=== PATIENT | male | born 1960 | race Caucasian/White ===

== ENCOUNTER 2023-03-19 12:56 | Outpatient (AMB) | payer BC, SELFPAY ==
--- NOTE | 2023-03-19 12:59 | MHC.PC.OV ---
Vital Signs 03/19/23 13:00 Height 5 ft 7 in Weight 205 lb BMI 32.1 BP 140/80 H Blood Pressure Location Lt brachial Position Sitting Pulse 70 Pulse Source Pulse Oximeter Pulse Oximetry (%) 97 Oxygen Delivery Method Room Air Intake Visit Reasons: Annual Physical Intake Note: Patient is here today for a physical. 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: Not Required per policy Accompanied by: Self / Same As Patient Allergies levofloxacin [From LEVAQUIN] Allergy (Severe, Verified 03/19/23 13:00) hypotension, admt for allergic rxn diverticulitis 12/24/18 Levaquin Allergy (Unknown, Uncoded 03/19/23 13:00) hives, syncope Tobacco use date assessed: 03/19/23 Fall risk assessment: No Falls in past year Last assessed Fall Risk: 03/19/23 Dental Screening Dental Screen Date: 03/19/23 Did you have a dental visit in the last 12 months?: No Did you have a dental problem in the last 6 months where you did not have access to dental care?: No Was dental information given to patient?: Patient has dentist HPI Annual Physical HPI Details healthy [facility] Surgical History (Updated 03/19/23 @ 13:03 by CONY Melgoza) No pertinent past surgical history Social History (Updated 03/19/23 @ 13:03 by CONY Melgoza) Housing: House Alcohol intake: current Alcohol intake frequency: holidays/special occasions only Patient Tobacco Use Status: Never used Tobacco e-Cigarette/Vaping Use: Never Used Second Hand Smoke Exposure: No service: No Current occupational status: employed Current occupational exposures/hazards: No Cognitive needs: No Hearing needs: No Vision needs: Yes Questionnaire Thrive Questionnaire Date Thrive assessed: 01/03/23 JOVI-7 AMB Questionnaire JOVI-7 Date JOVI - 7 assessed: 01/03/23 Source: Developed by Drs. Ke Terry, Joanne Peterson, Yusef Diaz and colleagues, with an educational ganesh from [employer]. Review of Systems Const Denies chills, Denies fatigue, Denies headache(s) and Denies weight loss Eyes Denies change in vision, Denies diplopia and Denies eye pain ENT Denies vertigo, Denies dizziness, Denies headache(s) and Denies nasal discharge Card Denies chest pain, Denies rapid heart rate and Denies dyspnea on exertion Resp Denies chest congestion, Denies cough, Denies pain with cough and Denies dyspnea on exertion GI Denies abdominal pain, Denies hematochezia and Denies change in bowel habits Musc Denies myalgias, Denies arthralgias and Denies joint swelling Skin/Breast Denies lesions and Denies unusual bruising Neuro Denies vertigo, Denies dizziness, Denies headache(s) and Denies focal weakness Endo Denies fatigue Physical exam (Primary Care) Vital Signs: Last Vital Signs Pulse 70 03/19/23 13:00 BP 140/80 H 03/19/23 13:00 Pulse Ox 97 03/19/23 13:00 Oxygen Delivery Method Room Air 03/19/23 13:00 BMI result Body Mass Index 32.1 Tobacco/Smoking Status: Tobacco use Status Tobacco use date assessed 03/19/23 03/19/23 13:05 Patient Tobacco Use Status Never used Tobacco 03/19/23 13:05 e-Cigarette/Vaping Use Never Used 03/19/23 13:05 Thrive Assessment: Date of Thrive Assessment Date Thrive assessed 01/03/23 03/19/23 13:05 Const General: cooperative, healthy appearing and no acute distress Orientation/consciousness: oriented to person, oriented to place and oriented to time [facility] Head: Yes normal to inspection, Yes normocephalic and Yes atraumatic Mouth: Normal oral and palatal mucosa present and tongue normal Throat: Yes posterior oropharynx normal and Yes uvula midline Eyes General: appearance normal, both eyes and all related structures Neck Neck: Yes normal visual inspection, Yes full ROM and Yes no lymphadenopathy Thyroid: Thyroid normal Carotids: normal carotid upstroke Chest Chest palpation & inspection: normal inspection of the chest Resp Effort & Inspection: normal respiratory effort and able to speak in complete sentences Auscultation: clear to auscultation bilaterally Cardio Jugular venous distension: no JVD Palpation: normal PMI Rate: regular rate Rhythm: regular rhythm Heart sounds: S1 normal heart sound present and S2 normal heart sound present GI Inspection: Yes normal to inspection Palpation (GI): Soft to palpation and No hepatosplenomegaly present Auscultation: normal bowel sounds General: Yes no CVA tenderness Back/Spine/Pelvis Back: no CVA tenderness Skin General skin exam: no rashes or lesions noted Neuro General: oriented to person, oriented to place and oriented to time Extrem General: Yes normal to inspection and Yes full ROM Assessment and Plan Assessment & Plan (1) Physical exam: Code(s): Z00.00 - Encounter for general adult medical examination without abnormal findings Plan: healthy; do labs Orders: Orders Comprehensive [place]. Panel Fast Today N28.9 - Disorder of kidney and ureter, unspecified Hemoglobin A1c Today R73.9 - Hyperglycemia, unspecified Lipid Panel Today E78.5 - Hyperlipidemia, unspecified Thyroid Stimulating Hormone Today E03.9 - Hypothyroidism, unspecified Complete Blood Count Auto Diff Today D64.9 - Anemia, unspecified Coding Level of Care Code Est Pt Prev Care 40-64y(69547) Diagnoses Physical exam Z00.00
[2023-03-19 13:00] VITALS: BP 140/80; PULSE 70; O2SAT 97; BMI 32.1
== END 2023-03-19 13:19 | disposition home or self-care (01) ==
PROVIDERS: Visit Provider Internal Medicine
DX: Z00.00 Encounter for general adult medical examination without abnormal findings (principal)
CPT/HCPCS: 99396

== ENCOUNTER 2023-11-21 10:43 | Outpatient (AMB) | payer BC, SELFPAY ==
[2023-11-21 11:17] VITALS: BP 180/100; PULSE 97; TEMP 36.6; O2SAT 96; BMI 32.6
--- NOTE | 2023-11-21 11:17 | AM.OFFWIN_ITS ---
Intake Vital Signs 11/21/23 11:17 Height 5 ft 7 in Weight 208 lb BMI 32.6 BP 180/100 H Blood Pressure Location Lt brachial Position Sitting Pulse 97 Pulse Source Pulse Oximeter Temp 97.9 F Temp Source Temporal Artery Scan Pulse Oximetry (%) 96 Oxygen Delivery Method Room Air Intake Visit Reasons: EP chest congestion Intake Note: pt is here today for chest congestion started 2 days ago Patient Tobacco Use Status: Never used Tobacco Allergies levofloxacin [From LEVAQUIN] Allergy (Severe, Verified 11/21/23 11:18) hypotension, admt for allergic rxn diverticulitis 12/24/18 Levaquin Allergy (Unknown, Uncoded 03/19/23 13:00) hives, syncope Do you need a note to return to daycare/school/sports/work: Yes HPI HPI Comments History of Present Illness Details 63 y/o female patient who presents to [facility] in clinic with c/o chest congestion x 2 days. Reports hearing audible wheezing when resting of lying down. Denies SOB or Chest Pain. Denies fevers, chills, nausea or vomiting. He is an active compa, goes to Gym daily. Does weight lifting. He just got back from [employer] COUNTS INCLUDE 234 BEDS AT THE [facility] Surgical History (Updated 03/19/23 @ 13:03 by CONY Melgoza) No pertinent past surgical history Social History (Updated 03/19/23 @ 13:03 by CONY Melgoza) Housing: House Alcohol intake: current Alcohol intake frequency: holidays/special occasions only Patient Tobacco Use Status: Never used Tobacco e-Cigarette/Vaping Use: Never Used Second Hand Smoke Exposure: No service: No Current occupational status: employed Current occupational exposures/hazards: No Cognitive needs: No Hearing needs: No Vision needs: Yes Review of Systems Const All systems reviewed & are unremarkable except as noted in HPI and below Physical Exam Vital Signs: Last Vital Signs Temp 97.9 F 11/21/23 11:17 Pulse 97 11/21/23 11:17 BP 180/100 H 11/21/23 11:17 Pulse Ox 96 11/21/23 11:17 Oxygen Delivery Method Room Air 11/21/23 11:17 BMI result Body Mass Index 32.6 Const General: comfortable and no acute distress Orientation/consciousness: patient oriented x3 HEENT Head: Yes normocephalic Ears: external ears normal and TM's normal bilaterally General nose exam: No nasal discharge present and Abnormal mucous membranes and turbinates present boggy and erythematous Face and sinus: Yes sinuses nontender Mouth: moist mucous membranes Throat: Yes posterior oropharynx normal Resp Effort & Inspection: normal respiratory effort, able to speak in complete sentences, no audible wheezes and no cough Auscultation: clear to auscultation bilaterally, no crackles, no rales, no rhonchi and no wheezes Cardio Rate: regular rate Rhythm: regular rhythm Neuro General: patient oriented x3 and gait normal Psych Speech and movement: Clear speech present Assessment & Plan Assessment & Plan (1) Cough in adult: Code(s): R05.9 - Cough, unspecified Plan: - OTC remedies - Rest - Exam WNL, no wheezing. Orders: Orders SARS-CoV2/FLU/RSV Today R05.9 - Cough, unspecified Coding Level of Care Code Est Pt Level 3 (64865) Diagnoses Cough in adult R05.9 Time Spent (min) 15
== END 2023-11-21 12:22 | disposition home or self-care (01) ==
PROVIDERS: PCP Internal Medicine; Visit Provider Nurse Practitioner Family
DX: R05.9 Cough, unspecified (principal)
CPT/HCPCS: 99213

== ENCOUNTER 2023-11-21 11:46 | Outpatient (REF) | payer BC, SELFPAY ==
[2023-11-21 15:38] LABS: Influenza A PCR NEGATIVE (Negative); Influenza B PCR NEGATIVE (Negative); Resp Syncy Virus RNA Qual PCR NEGATIVE (Negative); SARS COV2 PCR INHOUSE NEGATIVE (Negative)
== END 2023-11-21 11:47 | disposition home or self-care (01) ==
LOC: HO.LAB 11:46
PROVIDERS: Visit Provider Nurse Practitioner Family
DX: R05.9 Cough, unspecified (principal)
CPT/HCPCS: 0241U

== ENCOUNTER 2024-03-20 09:00 | Outpatient (AMB) | payer BC, SELFPAY ==
--- NOTE | 2024-03-20 09:03 | MHC.PC.OV ---
Vital Signs 03/20/24 09:05 Height 5 ft 7 in Weight 204 lb 4 oz BMI 32.0 BP 140/80 H Blood Pressure Location Lt brachial Position Sitting Pulse 92 Pulse Source Pulse Oximeter Pulse Oximetry (%) 96 Oxygen Delivery Method Room Air Intake Visit Reasons: Annual Exam - due for colonoscopy Intake Note: Patient is here today for a physical. 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: Not Required per policy Accompanied by: Self / Same As Patient Allergies levofloxacin [From LEVAQUIN] Allergy (Severe, Verified 03/20/24 09:05) hypotension, admt for allergic rxn diverticulitis 12/24/18 Levaquin Allergy (Unknown, Uncoded 03/20/24 09:05) hives, syncope Medication List - Last Reconciled 03/20/24 by Tino Ruiz MD No Known Home Meds Tobacco use date assessed: 03/20/24 Fall risk assessment: No Falls in past year Last assessed Fall Risk: 03/20/24 Dental Screening Dental Screen Date: 03/20/24 Did you have a dental visit in the last 12 months?: No Did you have a dental problem in the last 6 months where you did not have access to dental care?: No Was dental information given to patient?: Patient has dentist HPI Annual Exam - due for colonoscopy HPI Details healthy; has a colonoscopy pending [facility] Surgical History No pertinent past surgical history Social History Housing: House Alcohol intake: current Alcohol intake frequency: holidays/special occasions only Patient Tobacco Use Status: Never used Tobacco e-Cigarette/Vaping Use: Never Used Second Hand Smoke Exposure: No service: No Current occupational status: employed Current occupational exposures/hazards: No Cognitive needs: No Hearing needs: No Vision needs: Yes Questionnaire PHQ-9 Over the last 2 weeks, how often have you been bothered by any of the following problems? 1. Little interest or pleasure in doing things: not at all 2. Feeling down, depressed, or hopeless: not at all 3. Trouble falling or staying asleep, or sleeping too much: not at all 4. Feeling tired or having little energy: not at all 5. Poor appetite or overeating: not at all 6. Feeling bad about yourself - or that you are a failure or have let yourself or your family down: not at all 7. Trouble concentrating on things, such as reading the newspaper or watching television: not at all 8. Moving or speaking so slowly that other people could have noticed. Or the opposite - being so fidgety or restless that you have been moving around a lot more than usual: not at all 9. Thoughts that you would be better off or of hurting yourself in some way: not at all Total score: 0 Depression Screening Interpretation: Negative Depression Screening Done: Yes Source: Developed by Drs. Ke Terry, Joanne Peterson, Yusef Diaz and colleagues, with an educational ganesh from [employer]. Thrive Questionnaire Date Thrive assessed: 03/20/24 I am a: Patient What is your living situation today?: I have a steady place to live Within the past 12 months, did the food you bought not last and you didn't have the money to get more?: Never true Within the past 12 months, did you worry whether your food would run out before you got money to buy more?: Never true Do you have trouble paying for medicines?: No Do you have trouble getting transportation to medical appointments?: No Do you have trouble paying your heating and electricity bill?: No Do you have trouble taking care of your child, family member or friend?: No Do you have trouble with day-to-day activities such as bathing, preparing meals, shopping, managing finances, etc.?: No Are you currently unemployed and looking for a job?: No Are you interested in more education?: No Currently or been in a relationship where the following occur: No concerns reported THRIVE Score: 0 AUDIT C Alcohol Use Questionnaire (AUDIT-C) 1. How often do you have a drink containing alcohol?: 2-4 times a month 2. How many drinks containing alcohol do you have on a typical day when you are drinking?: 1 or 2 Total Score: 2 JOVI-7 AMB Questionnaire JOVI-7 Date JOVI - 7 assessed: 03/20/24 Feeling nervous, anxious, or on edge: 0 = Not at all Not being able to stop or control worryin = Not at all Worrying too much about different things: 0 = Not at all Trouble relaxin = Not at all Being so restless that it is hard to sit still: 0 = Not at all Becoming easily annoyed or irritable: 0 = Not at all Feeling afraid as if something awful might happen: 0 = Not at all Total JOVI-7 score (0-4 normal; 5-9 mild; 10-14 moderate; 15-21 severe): 0 Source: Developed by Drs. Ke Terry, Joanne Peterson, Yusef Diaz and colleagues, with an educational ganesh from [employer]. Review of Systems Const Denies chills, Denies fatigue, Denies headache(s) and Denies weight loss Eyes Denies change in vision, Denies diplopia and Denies eye pain ENT Denies vertigo, Denies dizziness, Denies headache(s) and Denies nasal discharge Card Denies chest pain, Denies rapid heart rate and Denies dyspnea on exertion Resp Denies chest congestion, Denies cough, Denies pain with cough and Denies dyspnea on exertion GI Denies abdominal pain, Denies hematochezia and Denies change in bowel habits Musc Denies myalgias, Denies arthralgias and Denies joint swelling Skin/Breast Denies lesions and Denies unusual bruising Neuro Denies vertigo, Denies dizziness, Denies headache(s) and Denies focal weakness Endo Denies fatigue Physical exam (Primary Care) Vital Signs: Last Vital Signs Pulse 92 03/20/24 09:05 BP 140/80 H 03/20/24 09:05 Pulse Ox 96 03/20/24 09:05 Oxygen Delivery Method Room Air 03/20/24 09:05 BMI result Body Mass Index 32.0 Tobacco/Smoking Status: Tobacco use Status Tobacco use date assessed 03/20/24 03/20/24 09:08 Patient Tobacco Use Status Never used Tobacco 03/20/24 09:08 e-Cigarette/Vaping Use Never Used 03/20/24 09:08 PHQ-9: PHQ-9 Score PHQ-9: Total score 0 03/20/24 09:08 Depression Screening Interpretation: Negative Thrive Assessment: Date of Thrive Assessment Date Thrive assessed 03/20/24 03/20/24 09:08 Currently or been in a relationship where the following occur: No concerns reported Const General: cooperative, healthy appearing and no acute distress Orientation/consciousness: oriented to person, oriented to place and oriented to time HEN[facility] Head: Yes normal to inspection, Yes normocephalic and Yes atraumatic Mouth: Normal oral and palatal mucosa present and tongue normal Throat: Yes posterior oropharynx normal and Yes uvula midline Eyes General: appearance normal, both eyes and all related structures Neck Neck: Yes normal visual inspection, Yes full ROM and Yes no lymphadenopathy Thyroid: Thyroid normal Carotids: normal carotid upstroke Chest Chest palpation & inspection: normal inspection of the chest Resp Effort & Inspection: normal respiratory effort and able to speak in complete sentences Auscultation: clear to auscultation bilaterally Cardio Jugular venous distension: no JVD Palpation: normal PMI Rate: regular rate Rhythm: regular rhythm Heart sounds: S1 normal heart sound present and S2 normal heart sound present GI Inspection: Yes normal to inspection Palpation (GI): Soft to palpation and No hepatosplenomegaly present Auscultation: normal bowel sounds General: Yes no CVA tenderness Back/Spine/Pelvis Back: no CVA tenderness Skin General skin exam: no rashes or lesions noted Neuro General: oriented to person, oriented to place and oriented to time Extrem General: Yes normal to inspection and Yes full ROM Assessment and Plan Assessment & Plan (1) Physical exam: Code(s): Z00.00 - Encounter for general adult medical examination without abnormal findings Plan: do labs Orders: Orders Complete Blood Count Auto Diff Today Z13.0 - Encounter for screening for diseases of the blood and blood-forming organs and certain disorders involving the immune mechanism Comprehensive [place]. Panel Fast Today Z13.9 - Encounter for screening, unspecified Lipid Panel Today Z13.220 - Encounter for screening for lipoid disorders Thyroid Stimulating Hormone Today Z13.29 - Encounter for screening for other suspected endocrine disorder Referrals Ear/Nose/Throat Referral H61.20 - Impacted cerumen, unspecified ear Coding Level of Care Code Est Pt Prev Care >65y(24414) Diagnoses Physical exam Z00.00
[2024-03-20 09:05] VITALS: BP 140/80; PULSE 92; O2SAT 96; BMI 32.0
== END 2024-03-20 09:22 | disposition home or self-care (01) ==
PROVIDERS: PCP Internal Medicine; Visit Provider Internal Medicine
DX: Z00.00 Encounter for general adult medical examination without abnormal findings (principal)
CPT/HCPCS: 99397

== ENCOUNTER 2024-04-17 11:30 | Outpatient (AMB) | payer BC, SELFPAY ==
[2024-04-17 12:00] VITALS: BP 144/78; PULSE 65; TEMP 36.8; O2SAT 98; BMI 32.1
--- NOTE | 2024-04-17 12:00 | MHC.OFFWIV ---
Intake Vital Signs 04/17/24 12:00 Height 5 ft 7 in Weight 205 lb BMI 32.1 BP 144/78 H Blood Pressure Location Rt brachial Position Sitting Pulse 65 Pulse Source Pulse Oximeter Temp 98.2 F Temp Source Oral Pulse Oximetry (%) 98 Oxygen Delivery Method Room Air Intake Visit Reasons: EP Bee sting LT leg/cellulitis Intake Note: pt c/o bee sting on LT leg/ cellulitis. Started Sunday while golfing Patient Tobacco Use Status: Never used Tobacco Allergies levofloxacin [From LEVAQUIN] Allergy (Severe, Verified 04/17/24 12:05) hypotension, admt for allergic rxn diverticulitis 12/24/18 Levaquin Allergy (Unknown, Uncoded 04/17/24 12:05) hives, syncope Do you need a note to return to daycare/school/sports/work: No HPI HPI Comments History of Present Illness Details Patient is a 63-year-old male who states he was stung by a bee while golfing proximally 48 hours ago. He says he is worried he has a cellulitis because he has had it before on that same leg. He denies much pain on the area, he does not think it feels much warmer than the rest of his leg it does not seem as red as it did earlier today. He says the wound/bite is not draining anything. He has been using a paced of water and baking soda on the area as well as hydrogen peroxide. [facility] Surgical History No pertinent past surgical history Social History Housing: House Alcohol intake: current Alcohol intake frequency: holidays/special occasions only Patient Tobacco Use Status: Never used Tobacco e-Cigarette/Vaping Use: Never Used Second Hand Smoke Exposure: No service: No Current occupational status: employed Current occupational exposures/hazards: No Cognitive needs: No Hearing needs: No Vision needs: Yes Review of Systems Const All systems reviewed & are unremarkable except as noted in HPI and below Physical Exam Vital Signs: Last Vital Signs Temp 98.2 F 04/17/24 12:00 Pulse 65 04/17/24 12:00 BP 144/78 H 08/08/24 12:00 Pulse Ox 98 04/17/24 12:00 Oxygen Delivery Method Room Air 04/17/24 12:00 BMI result Body Mass Index 32.1 Const General: cooperative, healthy appearing, comfortable, no acute distress and well developed Orientation/consciousness: patient oriented x3 Limitations: no limitations Resp Effort & Inspection: normal respiratory effort and able to speak in complete sentences Skin Other: Left lower extremity, distal calf, pinpoint area scabbed over, no warmth erythema drainage or induration noted Neuro General: patient oriented x3 Assessment & Plan Assessment & Plan (1) Local reaction to bee sting: Code(s): T63.441A - Toxic effect of venom of bees, accidental (unintentional), initial encounter Qualifiers: Encounter type: initial encounter Injury intent: undetermined intent Qualified Code(s): T63.444A - Toxic effect of venom of bees, undetermined, initial encounter Plan: Recommended not using hydrogen peroxide daily, recommended he use Aquaphor instead, can also use Benadryl. The area does not look like it is infected based on physical exam. Explained a localized reaction will max out around 72 hours which would be 24 hours from now. If it gets worse or becomes red or warm, he should return for recheck of the wound/area. Plan See above Coding Level of Care Code Est Pt Level 3 (09888) Diagnoses Local reaction to bee sting, undetermined intent, initial encounter T63.444A Encounter type: initial encounter Injury intent: undetermined intent
== END 2024-04-17 13:12 | disposition home or self-care (01) ==
PROVIDERS: PCP Internal Medicine; Visit Provider Physician Assistant
DX: T63.444A Toxic effect of venom of bees, undetermined, initial encounter (principal)
CPT/HCPCS: 99213

== ENCOUNTER 2024-05-22 09:47 | Outpatient (AMB) | payer BC, SELFPAY ==
[2024-05-22 09:55] VITALS: BP 170/100; PULSE 66; O2SAT 98; BMI 31.9
--- NOTE | 2024-05-22 09:55 | A.OFFPC_ITS ---
Vital Signs 05/22/24 09:55 Height 5 ft 7 in Weight 204 lb BMI 31.9 BP 170/100 H Blood Pressure Location Lt brachial Position Sitting Pulse 66 Pulse Source Pulse Oximeter Pulse Oximetry (%) 98 Oxygen Delivery Method Room Air Intake Visit Reasons: High Blood pressure check Buffer Machine Required: No Accompanied by: Self / Same As Patient Allergies levofloxacin [From LEVAQUIN] Allergy (Severe, Verified 05/22/24 10:00) hypotension, admt for allergic rxn diverticulitis 12/24/18 Levaquin Allergy (Unknown, Uncoded 05/22/24 10:00) hives, syncope Medication List - Last Reconciled 05/22/24 by Tino Ruiz MD lisinopril 10 mg PO DAILY Tobacco use date assessed: 03/20/24 Fall risk assessment: No Falls in past year Last assessed Fall Risk: 05/22/24 Dental Screening Dental Screen Date: 03/20/24 HPI High Blood pressure check HPI Details BP has been elevated on 3 occasions in the last week [facility] Surgical History No pertinent past surgical history Social History Housing: House Alcohol intake: current Alcohol intake frequency: holidays/special occasions only Patient Tobacco Use Status: Never used Tobacco Tobacco use type: Cigarette e-Cigarette/Vaping Use: Never Used Second Hand Smoke Exposure: No service: No Current occupational status: employed Current occupational exposures/hazards: No Cognitive needs: No Hearing needs: No Vision needs: Yes Questionnaire PHQ-9 Over the last 2 weeks, how often have you been bothered by any of the following problems? 1. Little interest or pleasure in doing things: not at all 2. Feeling down, depressed, or hopeless: not at all 3. Trouble falling or staying asleep, or sleeping too much: not at all 4. Feeling tired or having little energy: not at all 5. Poor appetite or overeating: not at all 6. Feeling bad about yourself - or that you are a failure or have let yourself or your family down: not at all 7. Trouble concentrating on things, such as reading the newspaper or watching television: not at all 8. Moving or speaking so slowly that other people could have noticed. Or the opposite - being so fidgety or restless that you have been moving around a lot more than usual: not at all 9. Thoughts that you would be better off or of hurting yourself in some way: not at all Total score: 0 Depression Screening Interpretation: Negative Depression Screening Done: Yes Source: Developed by Drs. Ke Terry, Joanne Peterson, Yusef Diaz and colleagues, with an educational ganesh from [employer]. Thrive Questionnaire Date Thrive assessed: 03/20/24 AUDIT C Alcohol Use Questionnaire (AUDIT-C) 1. How often do you have a drink containing alcohol?: 2-4 times a month 2. How many drinks containing alcohol do you have on a typical day when you are drinking?: 1 or 2 Total Score: 2 JOVI-7 AMB Questionnaire JOVI-7 Date JOVI - 7 assessed: 03/20/24 Source: Developed by Drs. Ke Terry, Joanne Peterson, Yusef Diaz and colleagues, with an educational ganesh from [employer]. Review of Systems Const Denies chills, Denies headache(s) and Denies weight loss ENT Denies headache(s) Card Denies chest pain, Denies syncope, Denies irregular heart rhythm and Denies dyspnea Resp Denies chest congestion, Denies cough and Denies dyspnea GI Denies abdominal pain, Denies change in stool character, Denies nausea and Denies vomiting Musc Denies deformity and Denies joint swelling Neuro Denies syncope and Denies headache(s) Physical exam (Primary Care) Vital Signs: Last Vital Signs Pulse 66 05/22/24 09:55 BP 170/100 H 05/22/24 09:55 Pulse Ox 98 05/22/24 09:55 Oxygen Delivery Method Room Air 05/22/24 09:55 BMI result Body Mass Index 31.9 Tobacco/Smoking Status: Tobacco use Status Tobacco use date assessed 03/20/24 05/22/24 10:00 Patient Tobacco Use Status Never used Tobacco 05/22/24 10:00 Tobacco use type Cigarette 05/22/24 10:00 e-Cigarette/Vaping Use Never Used 05/22/24 10:00 PHQ-9: PHQ-9 Score PHQ-9: Total score 0 05/22/24 10:00 Depression Screening Interpretation: Negative Thrive Assessment: Date of Thrive Assessment Date Thrive assessed 03/20/24 05/22/24 10:00 Const General: cooperative, comfortable, no acute distress and alert Neck Neck: Yes no lymphadenopathy Thyroid: Thyroid normal Resp Effort & Inspection: normal respiratory effort Auscultation: clear to auscultation bilaterally Percussion: percussion normal Cardio Jugular venous distension: no JVD Palpation: normal PMI Rate: regular rate Rhythm: regular rhythm Heart sounds: S1 normal heart sound present and S2 normal heart sound present GI Inspection: Yes normal to inspection Palpation (GI): No hepatosplenomegaly present Skin General skin exam: no rashes or lesions noted Extrem General: Yes no clubbing, cyanosis or edema Assessment and Plan Assessment & Plan (1) Hypertension: Code(s): I10 - Essential (primary) hypertension Plan: rx sent Medications: New lisinopril 10 mg PO DAILY 90 tabs 2RF Coding Level of Care Code Est Pt Level 3 (67671) Diagnoses Hypertension I10
== END 2024-05-22 10:11 | disposition home or self-care (01) ==
PROVIDERS: PCP Internal Medicine; Visit Provider Internal Medicine
DX: I10 Essential (primary) hypertension (principal)
CPT/HCPCS: 99213

== ENCOUNTER 2024-06-06 14:15 | Outpatient (AMB) | payer BC, SELFPAY ==
--- NOTE | 2024-06-06 14:15 | MHC.PC.OV ---
Vital Signs 06/06/24 14:16 Height 5 ft 7 in Weight 205 lb BMI 32.1 BP 150/88 H Blood Pressure Location Lt brachial Position Sitting Pulse 87 Pulse Source Pulse Oximeter Pulse Oximetry (%) 97 Oxygen Delivery Method Room Air Intake Visit Reasons: 2 Week F/U Director Property Required: No Accompanied by: Self / Same As Patient Allergies levofloxacin [From LEVAQUIN] Allergy (Severe, Verified 06/06/24 14:17) hypotension, admt for allergic rxn diverticulitis 12/24/18 Levaquin Allergy (Unknown, Uncoded 06/06/24 14:17) hives, syncope Medication List - Last Reconciled 06/06/24 by Tino Ruiz MD lisinopril 10 mg PO DAILY Tobacco use date assessed: 03/20/24 Fall risk assessment: No Falls in past year Last assessed Fall Risk: 06/06/24 Dental Screening Dental Screen Date: 03/20/24 HPI 2 Week F/U HPI Details tolerating rx well; bp has decreased 20 points PFSH Surgical History No pertinent past surgical history Social History Housing: House Alcohol intake: current Alcohol intake frequency: holidays/special occasions only Patient Tobacco Use Status: Never used Tobacco Tobacco use type: Cigarette e-Cigarette/Vaping Use: Never Used Second Hand Smoke Exposure: No service: No Current occupational status: employed Current occupational exposures/hazards: No Cognitive needs: No Hearing needs: No Vision needs: Yes Questionnaire Thrive Questionnaire Date Thrive assessed: 03/20/24 JOVI-7 AMB Questionnaire JOVI-7 Date JOVI - 7 assessed: 03/20/24 Source: Developed by Drs. Ke Terry, Joanne Peterson, Yusef Diaz and colleagues, with an educational ganesh from [employer]. Review of Systems Const Denies chills, Denies headache(s) and Denies weight loss ENT Denies headache(s) Card Denies chest pain, Denies syncope, Denies irregular heart rhythm and Denies dyspnea Resp Denies chest congestion, Denies cough and Denies dyspnea GI Denies abdominal pain, Denies change in stool character, Denies nausea and Denies vomiting Musc Denies deformity and Denies joint swelling Neuro Denies syncope and Denies headache(s) Physical exam (Primary Care) Vital Signs: Last Vital Signs Pulse 87 06/06/24 14:16 BP 150/88 H 06/06/24 14:16 Pulse Ox 97 06/06/24 14:16 Oxygen Delivery Method Room Air 06/06/24 14:16 BMI result Body Mass Index 32.1 Tobacco/Smoking Status: Tobacco use Status Tobacco use date assessed 03/20/24 06/06/24 14:19 Patient Tobacco Use Status Never used Tobacco 06/06/24 14:19 Tobacco use type Cigarette 06/06/24 14:19 e-Cigarette/Vaping Use Never Used 06/06/24 14:19 Thrive Assessment: Date of Thrive Assessment Date Thrive assessed 03/20/24 06/06/24 14:19 Const General: cooperative, comfortable, no acute distress and alert Neck Neck: Yes no lymphadenopathy Thyroid: Thyroid normal Resp Effort & Inspection: normal respiratory effort Auscultation: clear to auscultation bilaterally Percussion: percussion normal Cardio Jugular venous distension: no JVD Palpation: normal PMI Rate: regular rate Rhythm: regular rhythm Heart sounds: S1 normal heart sound present and S2 normal heart sound present GI Inspection: Yes normal to inspection Palpation (GI): No hepatosplenomegaly present Skin General skin exam: no rashes or lesions noted Extrem General: Yes no clubbing, cyanosis or edema Assessment and Plan Assessment & Plan (1) Hypertension: Code(s): I10 - Essential (primary) hypertension Plan: same dose; f/u 2 weeks Coding Level of Care Code Est Pt Level 3 (95498) Diagnoses Hypertension I10
[2024-06-06 14:16] VITALS: BP 150/88; PULSE 87; O2SAT 97; BMI 32.1
== END 2024-06-06 14:27 | disposition home or self-care (01) ==
PROVIDERS: PCP Internal Medicine; Visit Provider Internal Medicine
DX: I10 Essential (primary) hypertension (principal)

== ENCOUNTER → 2024-06-06 14:15 | Outpatient (BNVA) | payer BC, SELFPAY | PROVIDERS: PCP Internal Medicine; Visit Provider Internal Medicine | DX: I10 Essential (primary) hypertension (principal) ==

== ENCOUNTER 2024-06-30 14:11 | Outpatient (AMB) | payer BC, SELFPAY ==
[2024-06-30 14:15] VITALS: BP 164/84; PULSE 67; O2SAT 95; BMI 31.9
--- NOTE | 2024-06-30 14:15 | A.OFFPC_ITS ---
Vital Signs 06/30/24 14:15 Height 5 ft 7 in Weight 204 lb BMI 31.9 BP 164/84 H Blood Pressure Location Lt brachial Position Sitting Pulse 67 Pulse Source Pulse Oximeter Pulse Oximetry (%) 95 Oxygen Delivery Method Room Air Intake Visit Reasons: 3 week f/u Intake Note: Pt had just got his ear cleans and is in pain which he believes is causing the elevated BP. 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 Accompanied by: Self / Same As Patient Allergies levofloxacin [From LEVAQUIN] Allergy (Severe, Verified 06/30/24 14:18) hypotension, admt for allergic rxn diverticulitis 12/24/18 Levaquin Allergy (Unknown, Uncoded 06/30/24 14:18) hives, syncope Medication List - Last Reconciled 07/01/24 by Tino Ruiz MD lisinopril 10 mg PO DAILY Tobacco use date assessed: 03/20/24 Fall risk assessment: No Falls in past year Last assessed Fall Risk: 06/30/24 Dental Screening Dental Screen Date: 03/20/24 HPI 3 week f/u HPI Details HTN on rx; BP 120-130 at home and tolerating rx well PFSH Surgical History No pertinent past surgical history Social History Housing: House Alcohol intake: current Alcohol intake frequency: holidays/special occasions only Patient Tobacco Use Status: Never used Tobacco Tobacco use type: Cigarette e-Cigarette/Vaping Use: Never Used Second Hand Smoke Exposure: No service: No Current occupational status: employed Current occupational exposures/hazards: No Cognitive needs: No Hearing needs: No Vision needs: Yes Questionnaire Thrive Questionnaire Date Thrive assessed: 03/20/24 Are you currently unemployed and looking for a job?: No JOVI-7 AMB Questionnaire JOVI-7 Date JOVI - 7 assessed: 03/20/24 Source: Developed by Drs. Ke Terry, Joanne Peterson, Yusef Diaz and colleagues, with an educational ganesh from [employer]. Review of Systems Const Denies chills, Denies headache(s) and Denies weight loss ENT Denies headache(s) Card Denies chest pain, Denies syncope, Denies irregular heart rhythm and Denies dyspnea Resp Denies chest congestion, Denies cough and Denies dyspnea GI Denies abdominal pain, Denies change in stool character, Denies nausea and Denies vomiting Musc Denies deformity and Denies joint swelling Neuro Denies syncope and Denies headache(s) Physical exam (Primary Care) Vital Signs: Last Vital Signs Pulse 67 06/30/24 14:15 BP 164/84 H 06/30/24 14:15 Pulse Ox 95 06/30/24 14:15 Oxygen Delivery Method Room Air 06/30/24 14:15 BMI result Body Mass Index 31.9 Tobacco/Smoking Status: Tobacco use Status Tobacco use date assessed 03/20/24 06/30/24 14:15 Patient Tobacco Use Status Never used Tobacco 06/30/24 14:15 Tobacco use type Cigarette 06/30/24 14:15 e-Cigarette/Vaping Use Never Used 06/30/24 14:15 Thrive Assessment: Date of Thrive Assessment Date Thrive assessed 03/20/24 06/30/24 14:15 Const General: cooperative, comfortable, no acute distress and alert Neck Neck: Yes no lymphadenopathy Thyroid: Thyroid normal Resp Effort & Inspection: normal respiratory effort Auscultation: clear to auscultation bilaterally Percussion: percussion normal Cardio Jugular venous distension: no JVD Palpation: normal PMI Rate: regular rate Rhythm: regular rhythm Heart sounds: S1 normal heart sound present and S2 normal heart sound present GI Inspection: Yes normal to inspection Palpation (GI): No hepatosplenomegaly present Skin General skin exam: no rashes or lesions noted Extrem General: Yes no clubbing, cyanosis or edema Coding Level of Care Code Est Pt Level 3 (43697) Diagnoses Hypertension I10 Assessment & Plan Assessment & Plan (1) Hypertension: Code(s): I10 - Essential (primary) hypertension Category: Medical Plan: stable; f/u 3 months
== END 2024-06-30 14:42 | disposition home or self-care (01) ==
PROVIDERS: PCP Internal Medicine; Visit Provider Internal Medicine
DX: I10 Essential (primary) hypertension (principal)

== ENCOUNTER → 2024-06-30 14:11 | Outpatient (BNVA) | payer BC, SELFPAY | PROVIDERS: PCP Internal Medicine; Visit Provider Internal Medicine ==

== ENCOUNTER 2024-09-09 11:00 | Outpatient (AMB) | payer BC, SELFPAY ==
[2024-09-09 11:17] VITALS: BP 150/70; PULSE 96; O2SAT 97; BMI 33.2
--- NOTE | 2024-09-09 11:17 | MHC.PC.OV ---
Vital Signs 09/09/24 11:17 Height 5 ft 7 in Weight 212 lb 2 oz BMI 33.2 BP 150/70 H Blood Pressure Location Lt brachial Position Sitting Pulse 96 Pulse Source Pulse Oximeter Pulse Oximetry (%) 97 Oxygen Delivery Method Room Air Intake Visit Reasons: Congestion Intake Note: Patient is here to follow up on Congestion on going for 3 weeks. Negative for home covid test. Produce Associate Required: No Bonding Machine Operator: Not Required per policy Accompanied by: Self / Same As Patient Allergies levofloxacin [From LEVAQUIN] Allergy (Severe, Verified 09/09/24 11:17) hypotension, admt for allergic rxn diverticulitis 12/24/18 Levaquin Allergy (Unknown, Uncoded 09/09/24 11:17) hives, syncope Medication List - Last Reconciled 09/09/24 by Tino Ruiz MD lisinopril 10 mg PO DAILY Tobacco use date assessed: 09/09/24 Fall risk assessment: No Falls in past year Last assessed Fall Risk: 09/09/24 Dental Screening Dental Screen Date: 03/20/24 HPI Congestion HPI Details productive cough for 3 weeks PFSH Surgical History No pertinent past surgical history Social History Housing: House Alcohol intake: current Alcohol intake frequency: holidays/special occasions only Patient Tobacco Use Status: Never used Tobacco Tobacco use type: Cigarette e-Cigarette/Vaping Use: Never Used Second Hand Smoke Exposure: No service: No Current occupational status: employed Current occupational exposures/hazards: No Cognitive needs: No Hearing needs: No Vision needs: Yes Questionnaire Thrive Questionnaire Date Thrive assessed: 03/20/24 Are you currently unemployed and looking for a job?: No JOVI-7 AMB Questionnaire JOVI-7 Date JOVI - 7 assessed: 03/20/24 Source: Developed by Drs. Ke Terry, Joanne Peterson, Yusef Diaz and colleagues, with an educational ganesh from [employer]. Review of Systems Const Denies chills, Denies headache(s) and Denies weight loss ENT Denies headache(s) Card Denies chest pain, Denies syncope, Denies irregular heart rhythm and Denies dyspnea Resp Denies dyspnea GI Denies abdominal pain, Denies change in stool character, Denies nausea and Denies vomiting Musc Denies deformity and Denies joint swelling Neuro Denies syncope and Denies headache(s) Physical exam (Primary Care) Vital Signs: Last Vital Signs Pulse 96 09/09/24 11:17 BP 150/70 H 09/09/24 11:17 Pulse Ox 97 09/09/24 11:17 Oxygen Delivery Method Room Air 09/09/24 11:17 BMI result Body Mass Index 33.2 Tobacco/Smoking Status: Tobacco use Status Tobacco use date assessed 09/09/24 09/09/24 11:18 Patient Tobacco Use Status Never used Tobacco 09/09/24 11:18 Tobacco use type Cigarette 09/09/24 11:18 e-Cigarette/Vaping Use Never Used 09/09/24 11:18 Thrive Assessment: Date of Thrive Assessment Date Thrive assessed 03/20/24 09/09/24 11:18 Const General: cooperative, comfortable, no acute distress and alert Neck Neck: Yes no lymphadenopathy Thyroid: Thyroid normal Resp Effort & Inspection: normal respiratory effort Auscultation: clear to auscultation bilaterally Percussion: percussion normal Cardio Jugular venous distension: no JVD Palpation: normal PMI Rate: regular rate Rhythm: regular rhythm Heart sounds: S1 normal heart sound present and S2 normal heart sound present GI Inspection: Yes normal to inspection Palpation (GI): No hepatosplenomegaly present Skin General skin exam: no rashes or lesions noted Extrem General: Yes no clubbing, cyanosis or edema Coding Level of Care Code Est Pt Level 3 (22184) Diagnoses Cough R05.9 Assessment & Plan Assessment & Plan (1) Cough: Code(s): R05.9 - Cough, unspecified Plan: rx sent Medications: New azithromycin take 500 mg today (day 1), then 250 mg for 4 days (days 2-5) PO 6 tabs 0RF
== END 2024-09-09 11:29 | disposition home or self-care (01) ==
PROVIDERS: PCP Internal Medicine; Visit Provider Internal Medicine
DX: R05.9 Cough, unspecified (principal)

== ENCOUNTER 2024-09-30 14:25 | Outpatient (AMB) | payer BC, SELFPAY ==
--- NOTE | 2024-09-30 14:34 | A.OFFPC_ITS ---
Vital Signs 09/30/24 14:35 Height 5 ft 7 in Weight 213 lb 6 oz BMI 33.4 BP 140/96 H Blood Pressure Location Lt brachial Position Sitting Pulse 67 Pulse Source Pulse Oximeter Temp 97.3 F Temp Source Skin Pulse Oximetry (%) 96 Oxygen Delivery Method Room Air Intake Visit Reasons: 3mth f/u Intake Note: Patient is here to follow up on HTN. Pt decline flu shot today. Balancing Machine Operator Required: No Fourdrinier Machine Tender: Not Required per policy Accompanied by: Self / Same As Patient Allergies levofloxacin [From LEVAQUIN] Allergy (Severe, Verified 09/30/24 14:35) hypotension, admt for allergic rxn diverticulitis 12/24/18 Levaquin Allergy (Unknown, Uncoded 09/30/24 14:35) hives, syncope Medication List - Last Reconciled 10/01/24 by Tino Ruiz MD lisinopril 10 mg PO DAILY Tobacco use date assessed: 09/30/24 Fall risk assessment: No Falls in past year Last assessed Fall Risk: 09/30/24 Dental Screening Dental Screen Date: 09/30/24 Did you have a dental visit in the last 12 months?: Yes Did you have a dental problem in the last 6 months where you did not have access to dental care?: No Was dental information given to patient?: Patient has dentist HPI 3mth f/u HPI Details Hypertension on rx; BP still too high PFSH Surgical History No pertinent past surgical history Social History Housing: House Alcohol intake: current Alcohol intake frequency: holidays/special occasions only Patient Tobacco Use Status: Never used Tobacco Tobacco use type: Cigarette e-Cigarette/Vaping Use: Never Used Second Hand Smoke Exposure: No service: No Current occupational status: employed Current occupational exposures/hazards: No Cognitive needs: No Hearing needs: No Vision needs: Yes Questionnaire PHQ-9 Over the last 2 weeks, how often have you been bothered by any of the following problems? 1. Little interest or pleasure in doing things: not at all 2. Feeling down, depressed, or hopeless: not at all 3. Trouble falling or staying asleep, or sleeping too much: not at all 4. Feeling tired or having little energy: not at all 5. Poor appetite or overeating: not at all 6. Feeling bad about yourself - or that you are a failure or have let yourself or your family down: not at all 7. Trouble concentrating on things, such as reading the newspaper or watching television: not at all 8. Moving or speaking so slowly that other people could have noticed. Or the opposite - being so fidgety or restless that you have been moving around a lot more than usual: not at all 9. Thoughts that you would be better off or of hurting yourself in some way: not at all Total score: 0 Depression Screening Interpretation: Negative Depression Screening Done: Yes Source: Developed by Drs. Ke Terry, Joanne Peterson, Yusef Diaz and colleagues, with an educational ganesh from [employer]. Thrive Questionnaire Date Thrive assessed: 09/30/24 I am a: Patient What is your living situation today?: I have a steady place to live Within the past 12 months, did the food you bought not last and you didn't have the money to get more?: Never true Within the past 12 months, did you worry whether your food would run out before you got money to buy more?: Never true Do you have trouble paying for medicines?: No Do you have trouble getting transportation to medical appointments?: No Do you have trouble paying your heating and electricity bill?: No Do you have trouble taking care of your child, family member or friend?: No Do you have trouble with day-to-day activities such as bathing, preparing meals, shopping, managing finances, etc.?: No Are you currently unemployed and looking for a job?: No Are you interested in more education?: No Please select the resources that you would like help with: None Currently or been in a relationship where the following occur: No concerns reported THRIVE Score: 0 AUDIT C Alcohol Use Questionnaire (AUDIT-C) 1. How often do you have a drink containing alcohol?: 2-4 times a month 2. How many drinks containing alcohol do you have on a typical day when you are drinking?: 1 or 2 Total Score: 2 JOVI-7 AMB Questionnaire JOVI-7 Date JOVI - 7 assessed: 01/21/25 Feeling nervous, anxious, or on edge: 0 = Not at all Not being able to stop or control worryin = Not at all Worrying too much about different things: 0 = Not at all Trouble relaxin = Not at all Being so restless that it is hard to sit still: 0 = Not at all Becoming easily annoyed or irritable: 0 = Not at all Feeling afraid as if something awful might happen: 0 = Not at all Total JOVI-7 score (0-4 normal; 5-9 mild; 10-14 moderate; 15-21 severe): 0 Source: Developed by Drs. Ke Terry, Joanne Peterson, Yusef Diaz and colleagues, with an educational ganesh from [employer]. Review of Systems Const Denies chills, Denies headache(s) and Denies weight loss ENT Denies headache(s) Card Denies chest pain, Denies syncope, Denies irregular heart rhythm and Denies dyspnea Resp Denies chest congestion, Denies cough and Denies dyspnea GI Denies abdominal pain, Denies change in stool character, Denies nausea and D enies vomiting Musc Denies deformity and Denies joint swelling Neuro Denies syncope and Denies headache(s) Physical exam (Primary Care) Vital Signs: Last Vital Signs Temp 97.3 F 09/30/24 14:35 Pulse 67 09/30/24 14:35 BP 140/96 H 09/30/24 14:35 Pulse Ox 96 09/30/24 14:35 Oxygen Delivery Method Room Air 09/30/24 14:35 BMI result Body Mass Index 33.4 Tobacco/Smoking Status: Tobacco use Status Tobacco use date assessed 09/30/24 09/30/24 14:39 Patient Tobacco Use Status Never used Tobacco 09/30/24 14:39 Tobacco use type Cigarette 09/30/24 14:39 e-Cigarette/Vaping Use Never Used 09/30/24 14:39 PHQ-9: PHQ-9 Score PHQ-9: Total score 0 09/30/24 14:39 Depression Screening Interpretation: Negative Thrive Assessment: Date of Thrive Assessment Date Thrive assessed 09/30/24 09/30/24 14:39 Currently or been in a relationship where the following occur: No concerns reported Const General: cooperative, comfortable, no acute distress and alert Neck Neck: Yes no lymphadenopathy Thyroid: Thyroid normal Resp Effort & Inspection: normal respiratory effort Auscultation: clear to auscultation bilaterally Percussion: percussion normal Cardio Jugular venous distension: no JVD Palpation: normal PMI Rate: regular rate Rhythm: regular rhythm Heart sounds: S1 normal heart sound present and S2 normal heart sound present GI Inspection: Yes normal to inspection Palpation (GI): No hepatosplenomegaly present Skin General skin exam: no rashes or lesions noted Extrem General: Yes no clubbing, cyanosis or edema Coding Level of Care Code Est Pt Level 3 (23742) Diagnoses Hypertension I10 Assessment & Plan Assessment & Plan (1) Hypertension: Code(s): I10 - Essential (primary) hypertension Category: Medical Plan: increase lisinopril to 20mg qd Medications: New lisinopril 20 mg PO DAILY 30 tabs 2RF
[2024-09-30 14:35] VITALS: BP 140/96; PULSE 67; TEMP 36.3; O2SAT 96; BMI 33.4
--- OUTSIDE RECORDS SUMMARY | 2024-09-30 16:26 | XMS_ITS | Patient Health Record ---
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 Name Role Phone Tino Ruiz MD Primary Care Provider Ke Lorenz Unavailable [phone] REASON FOR REFERRAL No Information MEDICATIONS Medication SIG (Take, Route, Fr equency, Duration) Notes Start Date End Date Status Suprep Bowel Prep 1 as directed Orally a s directed for 1 dose 08/20/2013 Active SOCIAL HISTORY Sex Assigned At : Social History Observation Description Sex Assigned At Unknown PLAN OF TREATMENT Future Test Test Name Order Date COLONOSCOPY 08/20/2013 Next Appt Details Provider Name:Ke Carlos , 01/09/2025 01:40:00 PM, [address] [place] [address], [address], [place], [address], Insurance Providers Payer Name Payer Address Payer Phone Subscriber Number Group Number Insured Name Patient Relationship to Insured Coverage Start Date Coverage End Date [facility] [address] [place] [address] [phone] [id number] ROLAND TYLER Self - patient is the insured MEDICAL (GENERAL) HISTORY Medical History History ICD Code Denies [place],DM,CVA,Lung disease,renal dise ase He had a flexible sigmoidosc opy by in September 2002 for evaluation of bleeding-this revealed only minimal internal hemorrhoids Surgical History Surgery Date(Month/Year) Knee
== END 2024-09-30 14:48 | disposition home or self-care (01) ==
PROVIDERS: PCP Internal Medicine; Visit Provider Internal Medicine
DX: I10 Essential (primary) hypertension (principal)

== ENCOUNTER → 2024-09-30 14:25 | Outpatient (BNVA) | payer BC, SELFPAY | PROVIDERS: PCP Internal Medicine; Visit Provider Internal Medicine ==

== ENCOUNTER 2024-12-31 14:34 | Outpatient (AMB) | payer BC, SELFPAY ==
--- NOTE | 2024-12-31 14:43 | MHC.PC.OV ---
Vital Signs 12/31/24 14:44 Height 5 ft 7 in Weight 205 lb 6 oz BMI 32.2 BP 140/72 H Blood Pressure Location Lt brachial Position Sitting Pulse 92 Pulse Source Pulse Oximeter Temp 97.3 F Temp Source Temporal Artery Scan Pulse Oximetry (%) 97 Oxygen Delivery Method Room Air Intake Visit Reasons: transfer from [address] f/ Doctor Of Naturopathic Medicine Required: No Accompanied by: Self / Same As Patient Allergies levofloxacin [From LEVAQUIN] Allergy (Severe, Verified 12/31/24 14:49) hypotension, admt for allergic rxn diverticulitis 12/24/18 Levaquin Allergy (Unknown, Uncoded 12/31/24 14:49) hives, syncope Medication List - Last Reconciled 12/31/24 by Mann Queen PA-C lisinopril 20 mg PO DAILY Tobacco use date assessed: 09/30/24 Fall risk assessment: No Falls in past year Last assessed Fall Risk: 12/31/24 Dental Screening Dental Screen Date: 09/30/24 HPI transfer from [address] f/ HPI Details Patient is a 64-year-old male here today for a transfer of care visit. Previous PCP was Dr. Ruiz. He has a past medical history significant for type 1 obesity and hypertension. Hypertension: He reports a long-standing history of hypertension, managed with increased lisinopril dosage four months ago, resulting in stable readings at home. Today in office blood pressure readings slightly elevated to which has been a consistent pattern over the last few years. Questioning white coat hypertension. Osteoarthritis: The patient's joint pain has intensified over six months, affecting multiple joints with morning He maintains regular physical activity but with exercise-related limitations. Current pain management with Aleve offers minimal relief. 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 1. Little interest or pleasure in doing things: not at all 2. Feeling down, depressed, or hopeless: not at all 3. Trouble falling or staying asleep, or sleeping too much: not at all 4. Feeling tired or having little energy: not at all 5. Poor appetite or overeating: not at all 6. Feeling bad about yourself - or that you are a failure or have let yourself or your family down: not at all 7. Trouble concentrating on things, such as reading the newspaper or watching television: not at all 8. Moving or speaking so slowly that other people could have noticed. Or the opposite - being so fidgety or restless that you have been moving around a lot more than usual: not at all 9. Thoughts that you would be better off or of hurting yourself in some way: not at all Total score: 0 Depression Screening Interpretation: Negative Depression Screening Done: Yes 35967 - PHQ-9 Billing: Yes Source: Developed by Drs. Ke Terry, Joanne Peterson, Yusef Diaz and colleagues, with an educational ganesh from [employer]. Thrive Questionnaire Date Thrive assessed: 12/31/24 I am a: Patient What is your living situation today?: I have a steady place to live Within the past 12 months, did the food you bought not last and you didn't have the money to get more?: Never true Within the past 12 months, did you worry whether your food would run out before you got money to buy more?: Never true Do you have trouble paying for medicines?: No Do you have trouble getting transportation to medical appointments?: No Do you have trouble paying your heating and electricity bill?: No Do you have trouble taking care of your child, family member or friend?: No Do you have trouble with day-to-day activities such as bathing, preparing meals, shopping, managing finances, etc.?: No Are you currently unemployed and looking for a job?: No Are you interested in more education?: No Please select the resources that you would like help with: None Currently or been in a relationship where the following occur: No concerns reported THRIVE Score: 0 AUDIT C Alcohol Use Questionnaire (AUDIT-C) 1. How often do you have a drink containing alcohol?: 2-4 times a month 2. How many drinks containing alcohol do you have on a typical day when you are drinking?: 1 or 2 3. How often do you have six or more drinks on one occasion?: Never Total Score: 2 JOVI-7 AMB Questionnaire JOVI-7 Date JOVI - 7 assessed: 12/31/24 Feeling nervous, anxious, or on edge: 0 = Not at all Not being able to stop or control worryin = Not at all Worrying too much about different things: 0 = Not at all Trouble relaxin = Not at all Being so restless that it is hard to sit still: 0 = Not at all Becoming easily annoyed or irritable: 0 = Not at all Feeling afraid as if something awful might happen: 0 = Not at all Total JOVI-7 score (0-4 normal; 5-9 mild; 10-14 moderate; 15-21 severe): 0 Source: Developed by Drs. Ke Terry, Joanne Peterson, Yusef Diaz and colleagues, with an educational ganesh from [employer]. JOVI-7 Assessment Billing JOVI-7 Assessment Tool: JOVI-7 Assessment 06647 Review of Systems Const Denies headache(s) Eyes Denies loss of vision ENT Denies vertigo, Denies dizziness, Denies headache(s) and Denies sore throat Card Denies chest pain, Denies leg edema and Denies lightheadedness Resp Denies cough, Denies hemoptysis and Denies wheezing GI Denies abdominal pain, Denies melena, Denies constipation, Denies diarrhea and Denies vomiting Denies dysuria, Denies urinary frequency and Denies urinary urgency Musc Denies arthralgias, Denies joint swelling, Denies numbness and Denies tingling Neuro Denies Abnormal speech present, Denies behavioral changes, Denies vertigo, Denies dizziness, Denies headache(s), Denies loss of vision, Denies memory loss, Denies numbness and Denies tingling Psych Denies anxiety, Denies behavioral changes, Denies depression, Denies memory loss and Denies panic attacks Judah/Lymph Denies easy bleeding and Denies easy bruising Aller/Immun Denies wheezing Physical exam (Primary Care) Vital Signs: Last Vital Signs Temp 97.3 F 12/31/24 14:44 Pulse 92 12/31/24 14:44 BP 140/72 H 12/31/24 14:44 Pulse Ox 97 12/31/24 14:44 Oxygen Delivery Method Room Air 12/31/24 14:44 Care Plan Goal for BP management: Continue lisinopril 20 mg as home blood pressures are stable. Next steps: Continue being physically active and adherent to lisinopril 20 mg. Continue monitoring blood pressure BMI result Body Mass Index 32.2 BMI Assessment/Plan discussion: High BMI High, discussed plan: lifestyle, weight reduction, dietary and physical activity Tobacco/Smoking Status: Tobacco use Status Tobacco use date assessed 09/30/24 12/31/24 14:49 Patient Tobacco Use Status Never used Tobacco 12/31/24 14:59 Tobacco use type Cigarette 12/31/24 14:59 e-Cigarette/Vaping Use Never Used 12/31/24 14:59 PHQ-9: PHQ-9 Score PHQ-9: Total score 0 12/31/24 14:53 Depression Screening Interpretation: Negative Thrive Assessment: Date of Thrive Assessment Date Thrive assessed 12/31/24 12/31/24 14:49 Currently or been in a relationship where the following occur: No concerns reported Const General: healthy appearing, no acute distress, alert and awake Nutritional Appearance: well nourished Orientation/consciousness: oriented to person, oriented to place and oriented to time HENMT Ears: TM's normal bilaterally General nose exam: Normal nasal mucous membranes and turbinates present Eyes Conjunctivae: conjunctivae normal Sclerae: sclerae normal Pupils: Equal, round and reactive pupils present Neck Neck: Yes no lymphadenopathy and Yes no JVD Thyroid: Thyroid normal Carotids: no bruits Resp Effort & Inspection: normal respiratory effort and not tachypneic Auscultation: no crackles, no rales, no rhonchi and no wheezes Cardio Rate: regular rate Rhythm: regular rhythm Heart sounds: no murmurs and normal S1 and S2 GI Palpation (GI): Soft to palpation, nontender, no hepatomegaly and no splenomegaly Auscultation: normal bowel sounds Skin General skin exam: no rashes or lesions noted and dry skin Neuro General: oriented to person, oriented to place and oriented to time Cranial nerves: Yes Equal, round and reactive pupils present Speech: No Abnormal speech present Gait exam (Neuro): Normal gait present Motor exam (neuro): no tremor noted Extrem Right upper extremity: full ROM Left upper extremity: full ROM Right lower extremity: full ROM; no edema Left lower extremity: full ROM; no edema Psych Mental Status: mental status grossly normal Speech and movement: Normal speech and movement present Affect: normal affect Attitude: cooperative Thought process: Normal thought process present Coding Level of Care Code Est Pt Level 4 (07695) Diagnoses Primary hypertension I10 Hypertension type: primary hypertension Borderline high cholesterol E78.9 Class 1 obesity E66.811 Primary osteoarthritis of both shoulders M19.011; M19.012 Laterality: bilateral Osteoarthritis location: shoulder Osteoarthritis type: primary Additional Codes JOVI-7 Assessment Billing - JOVI-7 Assessment Tool: JOVI-7 Assessment 06211 ([id number]) PHQ-9 - 64693 - PHQ-9 Billing: Yes ([id number]) Assessment & Plan Assessment & Plan (1) Hypertension: Code(s): I10 - Essential (primary) hypertension Category: Medical Qualifiers: Hypertension type: primary hypertension Qualified Code(s): I10 - Essential (primary) hypertension Plan: Continue lisinopril 20 mg daily with home BP monitoring. Consider increasing dose if consistently over 140 systolic. Check labs for kidney function and lipids. (2) Borderline high cholesterol: Code(s): E78.9 - Disorder of lipoprotein metabolism, unspecified Category: Medical Plan: Patient has a history of borderline high cholesterol, will recheck his fasting labs to evaluate his cholesterol (3) Class 1 obesity: Code(s): E66.811 - Obesity, class 1 Category: Medical Plan: Patient does understand his BMI is over 30 will work on being more physically active and adapting to better eating habits to reduce his weight (4) Osteoarthritis: Code(s): M19.90 - Unspecified osteoarthritis, unspecified site Category: Medical Qualifiers: Laterality: bilateral Osteoarthritis location: shoulder Osteoarthritis type: primary Qualified Code(s): M19.011 - Primary osteoarthritis, right shoulder; M19.012 - Primary osteoarthritis, left shoulder Plan: Aleve 220 mg usage continues, assess effect. Consider Voltaren cream. Encourage physical activity, low-inflammatory diet. Note risks of NSAIDs on BP. Orders: Orders Microalbumin, Random (w Creat) 12/31/24 I10 - Essential (primary) hypertension Prostate Specific Antigen Scr 12/31/24 I10 - Essential (primary) hypertension, Z12.5 - Encounter for screening for malignant neoplasm of prostate Complete Blood Count no Diff 12/31/24 I10 - Essential (primary) hypertension Lipid Panel 12/31/24 E78.9 - Disorder of lipoprotein metabolism, unspecified Comprehensive Milnor. Panel Fast 12/31/24 I10 - Essential (primary) hypertension Medications: Changed From lisinopril 20 mg PO DAILY 30 tabs 2RF I10 - Essential (primary) hypertension To lisinopril 20 mg PO DAILY 90 tabs 1RF 90 days I10 - Essential (primary) hypertension Patient Instructions: Goal: Blood pressure to be below 140/90 at home consistently Barriers: Adherence to physical activity and healthy eating habits
[2024-12-31 14:44] VITALS: BP 140/72; PULSE 92; TEMP 36.3; O2SAT 97; BMI 32.2
--- OUTSIDE RECORDS SUMMARY | 2024-12-31 17:27 | XMS_ITS | Patient Health Record ---
Author Organization [facility] Address [address] [place] [address] Care Team Providers Care Ammonia Distiller Name Role Phone Tino Ruiz MD Primary Care Provider Ke Lorenz Unavailable [phone] Reason For Referral No Information Medications Medication SIG (Take, Route, Fr equency, Duration) Notes Start Date End Date Status Suprep Bowel Prep 1 as directed Orally a s directed for 1 dose 08/20/2013 Active Plan Of Treatment Future Test Test Name Order Date COLONOSCOPY 08/20/2013 Next Appt Details Provider Name:Ke Baker Breanna , 01/09/2025 01:40:00 PM, [address], [address], [place], [address], Insurance Providers Payer Name Payer Address Payer Phone Subscriber Number Group Number Insured Name Patient Relationship to Insured Coverage Start Date Coverage End Date [facility] [address] [place] [address] [id number] ROLAND TYLER Self - patient is the insured Medical (General) History Medical History History ICD Code Denies [place],DM,CVA,Lung disease,renal dise ase He had a flexible sigmoidosc opy by in September 2002 for evaluation of bleeding-this revealed only minimal internal hemorrhoids Surgical History Surgery Date(Month/Year) Knee
== END 2024-12-31 15:13 | disposition home or self-care (01) ==
LOC: HO.HMCH 14:35
PROVIDERS: PCP Internal Medicine; Visit Provider Physician Assistant
DX: I10 Essential (primary) hypertension (principal); E78.9 Disorder of lipoprotein metabolism, unspecified; E66.811 Obesity, class 1; Z68.32 Body mass index [BMI] 32.0-32.9, adult; M19.011 Primary osteoarthritis, right shoulder; M19.012 Primary osteoarthritis, left shoulder

== ENCOUNTER → 2024-12-31 14:34 | Outpatient (BNVA) | payer BC, SELFPAY | PROVIDERS: PCP Internal Medicine; Visit Provider Physician Assistant | DX: I10 Essential (primary) hypertension (principal); E78.9 Disorder of lipoprotein metabolism, unspecified; E66.811 Obesity, class 1; Z68.32 Body mass index [BMI] 32.0-32.9, adult; M19.011 Primary osteoarthritis, right shoulder; M19.012 Primary osteoarthritis, left shoulder; Z79.899 Other long term (current) drug therapy | CPT/HCPCS: 96127 ==

== ENCOUNTER 2025-06-17 11:14 | Outpatient (AMB) | payer BC, SELFPAY ==
--- NOTE | 2025-06-17 11:21 | A.OFFPC_ITS ---
Vital Signs 06/17/25 11:22 Height 5 ft 7 in Weight 208 lb 4 oz BMI 32.6 BP 150/86 H Blood Pressure Location Lt brachial Position Sitting Pulse 64 Pulse Source Pulse Oximeter Temp 97.1 F Temp Source Temporal Artery Scan Pulse Oximetry (%) 96 Oxygen Delivery Method Room Air Intake Visit Reasons: Annual Exam Intake Note: Patient is here today for a physical. 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: Not Required per policy Accompanied by: Self / Same As Patient Allergies levofloxacin (From LEVAQUIN) Allergy (Severe, Verified 06/17/25 11:32) hypotension, admt for allergic rxn diverticulitis 12/24/18 Levaquin Allergy (Unknown, Uncoded 06/17/25 11:32) hives, syncope Medication List - Last Reconciled 06/17/25 by Mann Queen PA-C lisinopril 20 mg PO DAILY 90 days Tobacco use date assessed: 06/17/25 Fall risk assessment: No Falls in past year Last assessed Fall Risk: 06/17/25 Dental Screening Dental Screen Date: 09/30/24 HPI Annual Exam HPI Details Patient is a 64-year-old male here today for routine annual physical. He has a past medical history significant for type 1 obesity and hypertension. Concern--> has decreased hearing secondary to his cerumen impactions in his ears. Tried your lavage today in office though was unsuccessful. Patient will go home and use your drops to soften cerumen impactions and will try to do a lavage in 2 weeks. Hypertension: He reports a long-standing history of hypertension, he has been managing to check his blood pressure quite regularly at home and noted systolic readings 110s to 130 systolic.. Today in office blood pressure readings slightly elevated to which has been a consistent pattern over the last few years. Questioning white coat hypertension. .. Class 1 obesity: Patient does understand his BMI is over 30 will work on being more physically active and adapting to better eating habits to reduce his weight Osteoarthritis: The patient's joint pain has intensified over six months, affecting multiple joints with morning He maintains regular physical activity but with exercise-related limitations. Current pain management with Aleve offers minimal relief. Vaccines: Up-to-date with shingles, needs up-to-date flu vaccine, needs up-to-date tetanus. Colorectal cancer screening: Colonoscopy done in 2013, normal repeat 10 years. 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 Current occupational exposures/hazards: No Cognitive needs: No Hearing needs: No Vision needs: Yes Questionnaire Thrive Questionnaire Date Thrive assessed: 12/31/24 I am a: Patient What is your living situation today?: I have a steady place to live Within the past 12 months, did the food you bought not last and you didn't have the money to get more?: Never true Within the past 12 months, did you worry whether your food would run out before you got money to buy more?: Never true Do you have trouble paying for medicines?: No Do you have trouble getting transportation to medical appointments?: No Do you have trouble paying your heating and electricity bill?: No Do you have trouble taking care of your child, family member or friend?: No Do you have trouble with day-to-day activities such as bathing, preparing meals, shopping, managing finances, etc.?: No Are you currently unemployed and looking for a job?: No Are you interested in more education?: No Please select the resources that you would like help with: None Currently or been in a relationship where the following occur: No concerns reported THRIVE Score: 0 JOVI-7 AMB Questionnaire JOVI-7 Date JOVI - 7 assessed: 12/31/24 Source: Developed by Drs. Ke Terry, Joanne Peterson, Yusef Diaz and colleagues, with an educational ganesh from [employer] Review of Systems Const Denies body aches, Denies chills, Denies excessive sweating, Denies fatigue, Denies fever(s) and Denies headache(s) Eyes Denies blurry vision ENT Denies dysphagia, Denies vertigo, Denies dizziness, Denies headache(s), Denies hearing loss and Denies tinnitus Card Denies chest pain, Denies chest pain with activity, Denies syncope, Denies irregular heart rhythm and Denies dyspnea Resp Denies chest congestion, Denies cough, Denies hemoptysis, Denies dyspnea and Denies wheezing GI Denies abdominal pain, Denies melena, Denies hematochezia, Denies coffee ground emesis, Denies dysphagia, Denies diarrhea, Denies nausea and Denies vomiting Denies difficulty urinating, Denies dysuria, Denies urinary frequency, Denies urinary hesitancy and Denies urinary urgency Musc Denies arthralgias, Denies limited range of motion, Denies muscle cramps and Denies muscle weakness Skin/Breast Denies rash and Denies skin ulcer Neuro Denies Abnormal speech present, Denies confusion, Denies vertigo, Denies dizziness, Denies syncope, Denies headache(s), Denies memory loss and Denies seizure-like activity Psych Denies anxiety, Denies confusion, Denies depression, Denies memory loss, Denies panic attacks and Denies paranoia Endo Denies excessive sweating, Denies fatigue, Denies flushing, Denies polydipsia and Denies polyuria Aller/Immun Denies wheezing Physical exam (Primary Care) Vital Signs: Last Vital Signs Temp 97.1 F 06/17/25 11:22 Pulse 64 06/17/25 11:22 BP 150/86 H 06/17/25 11:22 Pulse Ox 96 06/17/25 11:22 Oxygen Delivery Method Room Air 06/17/25 11:22 BMI result Body Mass Index 32.6 BMI Assessment/Plan discussion: High BMI High, discussed plan: lifestyle, weight reduction, dietary and physical activity Tobacco/Smoking Status: Tobacco use Status Tobacco use date assessed 06/17/25 06/17/25 11:26 Patient Tobacco Use Status Never used Tobacco 06/17/25 11:26 Tobacco use type Cigarette 06/17/25 11:26 e-Cigarette/Vaping Use Never Used 06/17/25 11:26 Thrive Assessment: Date of Thrive Assessment Date Thrive assessed 12/31/24 06/17/25 11:26 Currently or been in a relationship where the following occur: No concerns reported Const General: cooperative, comfortable, no acute distress, alert and awake; No confusion Orientation/consciousness: oriented to person, oriented to place, patient oriented x3 and No confusion HENMT Head: Yes normocephalic Ears: external ears normal and TM's normal bilaterally Face and sinus: No sinus tenderness Mouth: Normal oral and palatal mucosa present and tongue normal Teeth and gingiva: dentition normal and gingiva normal Throat: Yes posterior oropharynx normal, Yes tonsils normal and Yes uvula midline Eyes Conjunctivae: conjunctivae normal Sclerae: sclerae normal Pupils: Equal, round and reactive pupils present EOM: EOMs intact bilaterally Direct Ophthalmoscopy: No no photophobia Neck Neck: Yes no lymphadenopathy, No tender and Yes no JVD Thyroid: Thyroid normal Carotids: no bruits Chest Chest palpation & inspection: no tenderness Resp Effort & Inspection: normal respiratory effort, no audible wheezes, not labored and no stridor Auscultation: no crackles, no rales, no rhonchi and no wheezes Cardio Jugular venous distension: no JVD Rate: regular rate, not bradycardic and not tachycardic Rhythm: regular rhythm Bruits: no carotid bruits Peripheral pulses: Peripheral pulses 2+ throughout GI Inspection: Yes normal to inspection, No abdominal wall ecchymosis and No visible herniation Palpation (GI): Soft to palpation, nontender, no guarding, not rigid and No hepatosplenomegaly present Auscultation: normoactive bowel sounds General: Yes no CVA tenderness Back/Spine/Pelvis Back: no CVA tenderness and No back tenderness Cervical Spine: cervical ROM normal Thoracic/Lumbar Spine: thoracic and lumbar spine normal to inspection, straight leg raise negative bilaterally, No thoraco-lumbar ROM limited and No lumbar spinal tenderness Skin Lesions: no lesions Rashes: no rashes Wounds: no wounds Neuro General: oriented to person, oriented to place, patient oriented x3, CN's II-XI intact bilaterally and No confusion Cranial nerves: Yes Equal, round and reactive pupils present and Yes Normal accommodation reflex present Cognition (Neuro): normal cognition Speech: No Abnormal speech present Gait exam (Neuro): Normal gait present Motor exam (neuro): 5/5 motor strength present throughout Extrem Right upper extremity: full ROM; no cyanosis Left upper extremity: full ROM; no cyanosis Right lower extremity: no edema Left lower extremity: no edema Psych Appearance: grossly normal Mental Status: mental status grossly normal Affect: normal affect Attitude: cooperative Thought process: Normal thought process present Office Procedures Cerumen Removal Details: Unsuccessful attempt at removing right ear cerumen impaction. From which ear canal was the cerumen removed: right Removal: irrigation Notes: patient tolerated procedure well [id number]-Lms Irrigation/Lavage Immunizations Tenivac (PF) 5 Lf unit-2 Lf unit/0.5 mL intramuscular syringe Performing Provider: Mann Queen PA-C Performing Location: [facility] Administered by: Taty Polanco CMA on 06/17/25 12:19 Dose Route Admin Location Dispensed Lot Number Expiration Date NDC Public Health Administrator 0.5 mL IM Left Deltoid 0.5 mL [id number] 12/09/26 31356-832-47 [employer] Total Dispensed Waste 0.5 mL 0 % VIS Given Date VIS Provided VIS Publication Date 06/17/25 Single Vaccine 21 Eligibility Eligibility Date Funding Source Not [facility] Eligible 06/17/25 Private Coding Level of Care Code Est Pt Prev Care >65y(27756) Diagnoses Physical exam Z00.00 Primary hypertension I10 Hypertension type: primary hypertension Borderline high cholesterol E78.9 Class 1 obesity E66.811 Primary osteoarthritis of both shoulders M19.011; M19.012 Laterality: bilateral Osteoarthritis location: shoulder Osteoarthritis type: primary Impacted cerumen of both ears H61.23 CPT Codes Office Procedure - CPT: 29527-Uua Irrigation/Lavage ([id number]) Assessment & Plan Assessment & Plan (1) Physical exam: Code(s): Z00.00 - Encounter for general adult medical examination without abnormal findings Category: Medical Plan: As per HPI (2) Hypertension: Code(s): I10 - Essential (primary) hypertension Category: Medical Qualifiers: Hypertension type: primary hypertension Qualified Code(s): I10 - Essential (primary) hypertension Plan: Continue lisinopril 20 mg daily with home BP monitoring, at home blood pressures are 1 teens to 120 systolic. ? White coat hypertension. Consider increasing dose if consistently over 140 systolic. Check labs for kidney function and lipids. (3) Borderline high cholesterol: Code(s): E78.9 - Disorder of lipoprotein metabolism, unspecified Category: Medical Plan: Patient has a history of borderline high cholesterol, will recheck his fasting labs to evaluate his cholesterol (4) Class 1 obesity: Code(s): E66.811 - Obesity, class 1 Category: Medical Plan: Patient does understand his BMI is over 30 will work on being more physically active and adapting to better eating habits to reduce his weight (5) Osteoarthritis: Code(s): M19.90 - Unspecified osteoarthritis, unspecified site Category: Medical Qualifiers: Laterality: bilateral Osteoarthritis location: shoulder Osteoarthritis type: primary Qualified Code(s): M19.011 - Primary osteoarthritis, right shoulder; M19.012 - Primary osteoarthritis, left shoulder Plan: Aleve 220 mg usage continues, assess effect. Consider Voltaren cream. Encourage physical activity, low-inflammatory diet. Note risks of NSAIDs on BP. (6) Impacted cerumen of both ears: Code(s): H61.23 - Impacted cerumen, bilateral Category: Medical Plan: Bilateral cerumen impaction tried lavage today in office though was unsuccessful. Orders: Orders Td Immunization Today Z23 - Encounter for immunization
[2025-06-17 11:22] VITALS: BP 150/86; PULSE 64; TEMP 36.2; O2SAT 96; BMI 32.6
== END 2025-06-17 12:28 | disposition home or self-care (01) ==
LOC: HO.HMCH 11:14
PROVIDERS: PCP Physician Assistant; Visit Provider Physician Assistant
DX: Z00.00 Encounter for general adult medical examination without abnormal findings (principal); I10 Essential (primary) hypertension; E66.811 Obesity, class 1; Z68.32 Body mass index [BMI] 32.0-32.9, adult; E78.9 Disorder of lipoprotein metabolism, unspecified; M19.011 Primary osteoarthritis, right shoulder; M19.012 Primary osteoarthritis, left shoulder; H61.21 Impacted cerumen, right ear; Z23 Encounter for immunization

== ENCOUNTER → 2025-06-17 11:14 | Outpatient (BNVA) | payer BC, SELFPAY | PROVIDERS: PCP Physician Assistant; Visit Provider Physician Assistant | DX: Z23 Encounter for immunization (principal); Z00.00 Encounter for general adult medical examination without abnormal findings; I10 Essential (primary) hypertension; E78.9 Disorder of lipoprotein metabolism, unspecified; E66.811 Obesity, class 1; M19.011 Primary osteoarthritis, right shoulder; M19.012 Primary osteoarthritis, left shoulder; H61.23 Impacted cerumen, bilateral | CPT/HCPCS: 69209; 90471; 90714 ==

== ENCOUNTER 2025-07-22 11:10 | Day surgery (SDC) | payer BC, SELFPAY ==
--- OUTSIDE RECORDS SUMMARY | 2025-01-09 09:40 | XMS_ITS ---
Author Organization [facility] Address [address] [place] [address] Care Team Providers Care Chair Mender Name Role Phone Mann Queen Primary Care Provider Unavailab Ke Lindo Unavailable [phone] REASON FOR VISIT Patient presents today for a RECALL COLONOSCOPY Encounters Encounter Location Date Provider Diagnosis [facility] [address] [place] [phone] 01/09/2025 Ke Carlos Plan Of Treatment Next Appt Details Provider Name:Ke Carlos , 07/22/2025 12:30:00 PM, [address] [place] [address] , [place], [place], [phone], Progress Notes * ROLAND TYLERDOB:[birth year] (64 yo M)Acc No.[id number]:01/09/2025 Progress Notes Patient: ROLAND MUÑIZ Provider: Panchito Carlos MD :1960 A ge:64 Y S ex:Male Date:01/09/2025 Address:[address] [id number] Pcp:Mann Queen Subjective: * Chief Complaints: * 1 . Patient presents today for a RECALL COLONOSCOPY. * Medical History: Objective: * Vitals: Assessment: Plan: * Treatment: * * The named appointment provid er may or may not be the originator of this progress note, and it is not deemed complete until electronically signed by the appointment provider. Sign off status: Pending * Provider: Panchito Carlos MD Date: 0 01/09/2025 Generated for Ishani ng/Faneil/eTransmitting on: 1 09:29 PM EDT
--- OUTSIDE RECORDS SUMMARY | 2025-07-01 21:30 | XMS_ITS | Patient Health Record ---
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 Name Role Phone Mann Queen Primary Care Provider Unavailab Ke Lindo [phone] Allergies Allergen (clinical drug ingredient) Drug/Non Drug Allergy documented on EMR Reaction Allergy Type Onset Date Status Levaquin Unknown Drug Allergy Active Reason For Referral No Information Medications Medication SIG (Take, Route, Fr equency, Duration) Notes Start Date End Date Status Lisinopril 20 MG 1 tablet Orally Once a day Active Aleve 220 MG 1 tablet with food o r milk as needed Orally every 12 hrs Activ e Immunizations Vaccine Route Administration Date Status Comme nts Influenza Unknown 05/06/2025 Refused Problems Problem Type SNOMED Code ICD Code Onset Dates Problem Status W/U Status Risk Notes Problem Colon cancer screening (846211268) Colon cancer screening (Z12.11) Active confirmed Problem Preprocedural examination (165023062790043) Preprocedural examination (Z01.818) Active confirmed Vital Signs Temperature 97.5 degrees Fahrenheit 05/06/2025 Blood pressure diastolic 01 mm Hg 05/06/2025 Height 65.5 in 05/06/2025 Blood pressure systolic 001 mm Hg 05/06/2025 Weight 207 lbs 05/06/2025 BMI 33.92 kg/m2 05/06/2025 Procedures Procedure Date Ordered Date Performed Result Body Sit e COLONOSCOPY 05/06/2025 N/A Encounters Encounter Location Date Provider Diagnosis [facility] [address] [place] [address] 05/06/2025 Ke Carlos Colon cancer screeni ng Z12.11 and Preprocedural examination Z01.818 [facility] [address] [place] [address] 01/09/2025 Ke Carlos Assessments Encounter Date Diagnosis (ICD Code) Assessment Notes Treatment Notes Treatment Clinical Notes Section Notes 05/06/2025 Colon cancer screening (ICD-10 - Z12.11) Overall, Rico appears quite well. Given his age, good clinical appearance, and last colonoscopy being over 10 years ago, I did recommend a follow-up colonoscopy for further screening purposes. We did review the rationale for this in regard to colon cancer prevention. Full consent has been obtained for this, including risks of bleeding and perforation. The procedure will be done with monitored anesthesia care. Rcio was very comfortable with this plan. Thank you again for allowing me to participate in Rico's care. I shall continue to keep you advised of his progress. 05/06/2025 Preprocedural examination (ICD-10 - Z01.818) Overall, Rico appears quite well. Given his age, good clinical appearance, and last colonoscopy being over 10 years ago, I did recommend a follow-up colonoscopy for further screening purposes. We did review the rationale for this in regard to colon cancer prevention. Full consent has been obtained for this, including risks of bleeding and perforation. The procedure will be done with monitored anesthesia care. Rico was very comfortable with this plan. Thank you again for allowing me to participate in Rico's care. I shall continue to keep you advised of his progress. Plan Of Treatment Pending Test Test Name Order Date COLONOSCOPY 05/06/2025 Future Test Test Name Order Date COLONOSCOPY 08/20/2013 Next Appt Details Provider Name:Ke Olivia Carlos , 07/22/2025 12:30:00 PM, [address] [place] [address] , [place], [place], [id number], Insurance Providers Payer Name Payer Address Payer Phone Subscriber Number Group Number Insured Name Patient Relationship to Insured Coverage Start Date Coverage End Date [facility] [address] [place] [address] [id number] RICO TYLER Self - patient is the insured Medical (General) History Medical History History ICD Code Denies MN,DM,CVA,Lung disease,renal dise ase He had a flexible sigmoidosc opy by in September 2002 for evaluation of bleeding-this revealed only minimal internal hemorrhoids Negative screening colonoscopy in December 2013. Surgical History Surgery Date(Month/Year) Knee
--- NOTE | 2025-07-20 09:44 | P.CONAN_ITS ---
Documented by User: Chapis Shoemaker NP 07/20/25 09:44 HPI - Anesthesia Eval Consult details Narrative: 64yo M for Colonoscopy PMFSH Active Problems Active Problems: All Active Problems Impacted cerumen of both ears (Acute) Osteoarthritis (Acute) Class 1 obesity (Acute) Borderline high cholesterol (Acute) Hypertension (Acute) Local reaction to bee sting (Acute) Conjunctivitis (Acute) Obesity (Acute) Physical exam (Acute) Past Medical History Medical History HTN (hypertension) History of flexible sigmoidoscopy (2002) Family History Family History Mother HTN (hypertension) Surgical History Surgical History Hx of colonoscopy (12/2013) Hx of knee surgery Social History Social History Housing: House Alcohol intake: current Alcohol intake frequency: holidays/special occasions only Patient Tobacco Use Status: Never used Tobacco Tobacco use type: Cigarette e-Cigarette/Vaping Use: Never Used Second Hand Smoke Exposure: No Use of substances other than those prescribed or required for medical reasons: No Advance Directives: No Advance Directives Information Provided: Yes service: No Current occupational status: employed 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 Current occupational exposures/hazards: No Cognitive needs: No Hearing needs: No Vision needs: Yes Meds Allergies Allergy/AdvReac Type Severity Reaction Status Date / Time levofloxacin (From LEVAQUIN) Allergy Severe hypotension, Verified 06/17/25 11:32 admt for allergic rxn diverticulitis 12/24/18 Levaquin Allergy Unknown hives, Uncoded 06/17/25 11:32 syncope Home Medications ?Medication ?Instructions ?Recorded ?Confirmed ?Last Taken ?Type naproxen sodium 220 mg capsule 220 mg PO Q12H PRN Pain 07/20/25 07/20/25 Unknown History (Aleve) Assessment and Plan Assessment Anesthesia Assessment: Chart Reviewed Documented by User: Steve Del Castillo MD 07/22/25 12:10 [facility] Past Medical History Medical History HTN (hypertension) History of flexible sigmoidoscopy (2002) Functional capacity: independent ambulation Family History Family History Mother HTN (hypertension) Family history of problems with anesthesia: No Surgical History Surgical History Hx of colonoscopy (12/2013) Hx of knee surgery History of Problems with Anesthesia: No Social History Social History Housing: House Alcohol intake: current Alcohol intake frequency: holidays/special occasions only Patient Tobacco Use Status: Never used Tobacco Tobacco use type: Cigarette e-Cigarette/Vaping Use: Never Used Second Hand Smoke Exposure: No Use of substances other than those prescribed or required for medical reasons: No Advance Directives: No Advance Directives Information Provided: Yes service: No Current occupational status: employed 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 Current occupational exposures/hazards: No Cognitive needs: No Hearing needs: No Vision needs: Yes Meds Allergies Allergy/AdvReac Type Severity Reaction Status Date / Time levofloxacin (From LEVAQUIN) Allergy Severe hypotension, Verified 06/17/25 11:32 admt for allergic rxn diverticulitis 12/24/18 Levaquin Allergy Unknown hives, Uncoded 06/17/25 11:32 syncope Home Medications ?Medication ?Instructions ?Recorded ?Confirmed ?Last Taken ?Type naproxen sodium 220 mg capsule 220 mg PO Q12H PRN Pain 07/20/25 07/20/25 Unknown History (Aletariq) Exam Exam Date and Time: 07/22/2025 Airway Mallampati Class: II TM Dist: >3cm Neck ROM: Full Heart: normal Lungs: normal Other: normal Assessment and Plan Final Anesthetic Review Family History of Problems with Anesthesia: No History of Problems with Anesthesia: No NPO: Yes ASA Class: II Final Preanesthetic Review: No Changes in Pt Med Stat, Meds/Allgs Chart Reviewed, Consent Obtained/Reviewed and Anes Risks/Benef Reviewed Patient Risk: Low Procedure Risk: Low Anesthetic Plan Anesthetic Plan: MAC: and Agree w/ Assess. and Plan Disposition: Standard PACU
[2025-07-20 15:46] VITALS: BMI 32.6
[2025-07-22 11:47] VITALS: BMI 31.8
[2025-07-22] MEDS: Lactated Ringers 1,000 ML 100 ML IVCONT (11:57)
[2025-07-22 11:58] VITALS: BP 138/86; PULSE 91; RESP 16; TEMP 36.7; O2SAT 97
[2025-07-22 14:30] VITALS: BP 86/49; PULSE 92; RESP 16; TEMP 36.8; O2SAT 95
--- NOTE | 2025-07-22 14:33 | P.BOP_ITS ---
Brief Operative Note Date of Service: 07/22/25 Pre-op diagnosis: Screening Post-op diagnosis: other (Diverticulosis) Procedure: Colonoscopy to the cecum Surgeon: Ke Carlos MD Anesthesia: MAC Was an Bar Host/Hostess used for this Procedure?: No Estimated blood loss (mL): 0 Pathology: none sent Condition: stable Disposition: PACU
[2025-07-22 14:45] VITALS: BP 99/60; PULSE 79; RESP 16; O2SAT 96
[2025-07-22 15:00] VITALS: BP 100/68; PULSE 70; RESP 16; TEMP 36.6; O2SAT 96
--- NOTE | 2025-07-23 00:52 | OP_ITS ---
DATE OF SERVICE: 07/22/2025 SURGEON: Ke Carlos MD INDICATIONS: The patient presents for evaluation of colorectal cancer screening. Full consent has been obtained from him for this, including risks of bleeding and perforation. PREOPERATIVE DIAGNOSIS: Colorectal cancer screening. POSTOPERATIVE DIAGNOSIS: Colorectal cancer screening, diverticulosis, and internal hemorrhoids. PROCEDURE PERFORMED: Colonoscopy to the cecum. ESTIMATED BLOOD LOSS: COMPLICATIONS: ANESTHESIA: Medication used, monitored anesthesia care. ASSISTANTS: SPECIMENS: DESCRIPTION OF PROCEDURE: The patient was placed in the left lateral decubitus position. The digital rectal exam revealed no abnormalities. The Olympus video pediatric colonoscope was entered into the rectum and advanced easily to the cecum. Once in the cecum I identified a normal appendiceal orifice and a normal-appearing ileocecal valve. The entire cecum and ileocecal valve appeared normal. The scope was slowly withdrawn assessing all mucosal surfaces carefully. Preparation was excellent. I did not visualize any sign of polyps, colitis, nor angiodysplasia. There was a mild amount of sigmoid diverticulosis. In the rectum, scope was retroflexed visualizing internal hemorrhoids, but no other pathology. The rectal mucosa appeared normal. Scope was straightened and withdrawn from the patient. He tolerated the procedure well and was returned to recovery area in stable condition. IMPRESSION: 1. Diverticulosis. 2. Internal hemorrhoids. PLAN: Given today's negative exam and negative family history, as well as a negative colonoscopy in 2013, I advised him to have a repeat colonoscopy in 10 years for further screening. He will otherwise see me on a p.r.n. basis. Ke Carlos MD RMRoxanna/BOL / [id number] MTDD
== END 2025-07-22 15:14 | disposition home or self-care (01) ==
PROVIDERS: PCP Physician Assistant; Visit Provider Internal Medicine
PROC: 0DJD8ZZ Inspection of Lower Intestinal Tract, Via Natural or Artificial Opening Endoscopic (ICD-10-PCS; CPT 45378; principal; 2025-07-22 12:30)
DX: Z12.11 Encounter for screening for malignant neoplasm of colon (principal); K64.8 Other hemorrhoids; K57.30 Diverticulosis of large intestine without perforation or abscess without bleeding
CPT/HCPCS: 45378; J2003; J2704; J3010

== ENCOUNTER 2025-07-29 08:50 | Outpatient (AMB) | payer BC, SELFPAY ==
--- OUTSIDE RECORDS SUMMARY | 2025-01-09 08:40 | XMS_ITS ---
Author Organization [facility] Address [address] [place] [address] Care Team Providers Care Stunt Person Name Role Phone Mann Queen Primary Care Provider Unavailab Ke Lindo Unavailable [phone] REASON FOR VISIT Patient presents today for a RECALL COLONOSCOPY Encounters Encounter Location Date Provider Diagnosis [facility] [address] [place] [address] 01/09/2025 Ke Carlos Plan Of Treatment No Information Progress Notes * ROLAND TYLERDOB:[birth year] (64 yo M)Acc No.[id number]:01/09/2025 Progress Notes Patient: ROLAND MUÑIZ Provider: Panchito Carlos MD :1960 A ge:64 Y S ex:Male Date:01/09/2025 Address:[address] [id number] Pcp:Mann Queen Subjective: * Chief Complaints: * P atient presents today for a RECALL COLONOSCOPY * The named appointment provid er may or may not be the originator of this progress note, and it is not deemed complete until electronically signed by the appointment provider. Sign off status: Pending * Provider: Panchito Carlos MD Date: 0 01/09/2025 Generated for Sonia acuna/Izabella/Saurabhitting on: 09/28/2024 04:28 PM EST
--- OUTSIDE RECORDS SUMMARY | 2025-07-22 07:30 | XMS_ITS ---
Author Organization [facility] Address [address] [place] [address] Care Team Providers Care Programmer Name Role Phone Mann Queen Primary Care Provider Unavailab Ke Lindo Unavailable [phone] REASON FOR VISIT screening Encounters Encounter Location Date Provider Diagnosis [facility] [address], [place] [id number] 07/22/2025 Ke Carlos Plan Of Treatment No Information Progress Notes * ROLAND TYLERDOB:[birth year] (64 yo M)Acc No.[id number]:07/22/2025 COLON WITH MAC Patient: ROLAND MUÑIZ Provider: Panchito Carlos MD :1960 A ge:64 Y S ex:Male Date:07/22/2025 Address:[address] [id number] Pcp:Mann Queen Subjective: * Chief Complaints: * S creening * The named appointment provid er may or may not be the originator of this progress note, and it is not deemed complete until electronically signed by the appointment provider. Sign off status: Pending * Provider: Panchito Carlos MD Date: 09/21/2024 Generated for Sonia acuna/Izabella/Seun on: 09/28/2024 04:28 PM EST
[2025-07-29 08:51] VITALS: BP 138/74; PULSE 70; TEMP 36.1; O2SAT 95; BMI 32.3
--- NOTE | 2025-07-29 08:51 | A.OFFPC_ITS ---
Vital Signs 07/29/25 08:51 Height 5 ft 7 in Weight 206 lb 2 oz BMI 32.3 BP 138/74 Blood Pressure Location Lt brachial Position Sitting Pulse 70 Pulse Source Pulse Oximeter Temp 97.0 F Temp Source Temporal Artery Scan Pulse Oximetry (%) 95 Oxygen Delivery Method Room Air Intake Visit Reasons: Diverticulitis Allergies levofloxacin (From LEVAQUIN) Allergy (Severe, Verified 07/29/25 09:14) hypotension, admt for allergic rxn diverticulitis 12/24/18 Levaquin Allergy (Unknown, Uncoded 07/29/25 09:14) hives, syncope Medication List - Last Reconciled 07/29/25 by Mann Queen PA-C lisinopril 20 mg PO DAILY 90 days naproxen sodium (Aleve) 220 mg PO Q12H PRN Tobacco use date assessed: 07/29/25 Fall risk assessment: No Falls in past year Last assessed Fall Risk: 07/29/25 Dental Screening Dental Screen Date: 07/29/25 Did you have a dental visit in the last 12 months?: No Did you have a dental problem in the last 6 months where you did not have access to dental care?: No Was dental information given to patient?: Patient has dentist HPI Diverticulitis HPI Details The patient is a 64-year-old male presenting for evaluation of left-sided abdominal pain. He had a planned colonoscopy last Sunday which revealed internal hemorrhoids and mild sigmoid diverticulosis, with a recommendation for a repeat colonoscopy in 10 years. On Sunday, after eating at a buffet, he developed mild stomach pain, which his also experienced. The pain became more significant yesterday, localized to the left side, and was described as very uncomfortable, even with deep breaths. He researched his symptoms and became concerned for diverticulitis. He has been afebrile with temperatures around 98?F and had a normal bowel movement today. Today, he reports his pain is 85% improved and is only noticeable with certain movements. His past medical history is significant for a prior episode of diverticulitis over 5-6 years ago, diagnosed via CT scan, which resulted in an allergic reaction to IV Levaquin. He has a history of hypertension, for which he is followed every six months, and has an ongoing issue with cerumen impaction. He takes Aleve intermittently but is cautious due to potential kidney effects. The patient reports doing a lot of exercise. 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 1. Little interest or pleasure in doing things: not at all 2. Feeling down, depressed, or hopeless: not at all 3. Trouble falling or staying asleep, or sleeping too much: not at all 4. Feeling tired or having little energy: not at all 5. Poor appetite or overeating: not at all 6. Feeling bad about yourself - or that you are a failure or have let yourself or your family down: not at all 7. Trouble concentrating on things, such as reading the newspaper or watching television: not at all 8. Moving or speaking so slowly that other people could have noticed. Or the opposite - being so fidgety or restless that you have been moving around a lot more than usual: not at all 9. Thoughts that you would be better off or of hurting yourself in some way: not at all Total score: 0 Depression Screening Interpretation: Negative Depression Screening Done: Yes Source: Developed by Drs. Ke Terry, Joanne Peterson, Yusef Diaz and colleagues, with an educational ganesh from [employer]. Thrive Questionnaire Date Thrive assessed: 12/31/24 I am a: Patient What is your living situation today?: I have a steady place to live Within the past 12 months, did the food you bought not last and you didn't have the money to get more?: Never true Within the past 12 months, did you worry whether your food would run out before you got money to buy more?: Never true Do you have trouble paying for medicines?: No Do you have trouble getting transportation to medical appointments?: No Do you have trouble paying your heating and electricity bill?: No Do you have trouble taking care of your child, family member or friend?: No Do you have trouble with day-to-day activities such as bathing, preparing meals, shopping, managing finances, etc.?: No Are you currently unemployed and looking for a job?: No Are you interested in more education?: No Please select the resources that you would like help with: None Currently or been in a relationship where the following occur: No concerns reported THRIVE Score: 0 AUDIT C Alcohol Use Questionnaire (AUDIT-C) 1. How often do you have a drink containing alcohol?: 2-4 times a month 2. How many drinks containing alcohol do you have on a typical day when you are drinking?: 1 or 2 3. How often do you have six or more drinks on one occasion?: Never Total Score: 2 JOVI-7 AMB Questionnaire JOVI-7 Date JOVI - 7 assessed: 12/31/24 Feeling nervous, anxious, or on edge: 0 = Not at all Not being able to stop or control worryin = Not at all Worrying too much about different things: 0 = Not at all Trouble relaxin = Not at all Being so restless that it is hard to sit still: 0 = Not at all Becoming easily annoyed or irritable: 0 = Not at all Feeling afraid as if something awful might happen: 0 = Not at all Total JOVI-7 score (0-4 normal; 5-9 mild; 10-14 moderate; 15-21 severe): 0 Source: Developed by Drs. Ke Terry, Joanne Peterson, Yusef Diaz and colleagues, with an educational ganesh from [employer]. Review of Systems Const Denies headache(s) Eyes Denies loss of vision ENT Denies vertigo, Denies dizziness, Denies headache(s) and Denies sore throat Card Denies chest pain, Denies leg edema and Denies lightheadedness Resp Denies cough, Denies hemoptysis and Denies wheezing GI Reports abdominal pain, Denies melena, Denies constipation, Denies diarrhea and Denies vomiting Denies dysuria, Denies urinary frequency and Denies urinary urgency Musc Denies arthralgias, Denies joint swelling, Denies numbness and Denies tingling Neuro Denies Abnormal speech present, Denies behavioral changes, Denies vertigo, Denies dizziness, Denies headache(s), Denies loss of vision, Denies memory loss, Denies numbness and Denies tingling Psych Denies anxiety, Denies behavioral changes, Denies depression, Denies memory loss and Denies panic attacks Judah/Lymph Denies easy bleeding and Denies easy bruising Aller/Immun Denies wheezing Physical exam (Primary Care) Vital Signs: Last Vital Signs Temp 97.0 F 07/29/25 08:51 Pulse 70 07/29/25 08:51 BP 138/74 07/29/25 08:51 Pulse Ox 95 07/29/25 08:51 Oxygen Delivery Method Room Air 07/29/25 08:51 BMI result Body Mass Index 32.3 Tobacco/Smoking Status: Tobacco use Status Tobacco use date assessed 07/29/25 07/29/25 08:56 Patient Tobacco Use Status Never used Tobacco 07/29/25 08:56 Tobacco use type Cigarette 07/29/25 08:56 e-Cigarette/Vaping Use Never Used 07/29/25 08:56 PHQ-9: PHQ-9 Score PHQ-9: Total score 0 07/29/25 09:15 Depression Screening Interpretation: Negative Thrive Assessment: Date of Thrive Assessment Date Thrive assessed 12/31/24 07/29/25 08:56 Currently or been in a relationship where the following occur: No concerns reported Const General: healthy appearing, no acute distress, alert and awake Nutritional Appearance: well nourished Orientation/consciousness: oriented to person, oriented to place and oriented to time HENMT Ears: TM's normal bilaterally General nose exam: Normal nasal mucous membranes and turbinates present Eyes Conjunctivae: conjunctivae normal Sclerae: sclerae normal Pupils: Equal, round and reactive pupils present Neck Neck: Yes no lymphadenopathy and Yes no JVD Thyroid: Thyroid normal Carotids: no bruits Resp Effort & Inspection: normal respiratory effort and not tachypneic Auscultation: no crackles, no rales, no rhonchi and no wheezes Cardio Rate: regular rate Rhythm: regular rhythm Heart sounds: no murmurs and normal S1 and S2 GI Palpation (GI): Soft to palpation, nontender, no hepatomegaly and no splenomegaly Auscultation: normal bowel sounds Skin General skin exam: no rashes or lesions noted and dry skin Neuro General: oriented to person, oriented to place and oriented to time Cranial nerves: Yes Equal, round and reactive pupils present Speech: No Abnormal speech present Gait exam (Neuro): Normal gait present Motor exam (neuro): no tremor noted Extrem Right upper extremity: full ROM Left upper extremity: full ROM Right lower extremity: full ROM; no edema Left lower extremity: full ROM; no edema Psych Mental Status: mental status grossly normal Speech and movement: Normal speech and movement present Affect: normal affect Attitude: cooperative Thought process: Normal thought process present Office Procedures Flu Questionnaire Does the patient have a severe egg allergy?: No Does the patient have severe life threatening allergies?: No Does the patient have a fever or illness today?: No Has the patient ever had Guillain-[place] Syndrome?: No Has the patient ever had any past reaction to a flu shot?: No Immunizations Fluarix [id number] (PF) 45 mcg (15 mcg x 3)/0.5 mL IM syringe Performing Provider: Mann Queen PA-C Performing Location: [facility] Administered by: Viki Garcia CMA on 07/29/25 09:06 Dose Route Admin Location Dispensed Lot Number Expiration Date MTC Loan Consultant 0.5 mL IM Left Deltoid 0.5 mL [id number] 03/09/26 [id number] [employer] VIS Given Date VIS Provided VIS Publication Date 07/29/25 Single Vaccine 24 Eligibility Eligibility Date Funding Source Not [facility] Eligible 07/29/25 Private Coding Level of Care Code Est Pt Level 4 (29629) Diagnoses Left lower quadrant abdominal pain R10.32 Assessment & Plan Assessment & Plan (1) Left lower quadrant abdominal pain: Code(s): R10.32 - Left lower quadrant pain Category: Medical Plan: The patient's symptoms are clinically consistent with a mild case of acute diverticulitis, especially given his improving symptoms and lack of fever. To avoid immediate radiation exposure from a CT scan, a clinical management approach will be taken. An amoxicillin-based antibiotic will be prescribed for the patient to hold and only start if symptoms worsen, such as an increase in pain, fever, or onset of diarrhea. Fluoroquinolones will be avoided due to his known allergy. The patient was instructed to contact the office if he is not improving after one to two days on the antibiotic, at which point an ER visit for a CT scan may be necessary. For symptomatic relief, the patient can use Aleve to reduce inflammation. Long- term management will focus on preventative measures, including increasing dietary fiber with foods like green leafy vegetables and fruit skins, and considering a supplement like Metamucil. Orders: Orders Influenza [id number] Immunization Today Z23 - Encounter for immunization Medications: New amoxicillin-pot clavulanate 875-125 mg 1 tab PO BID 14 tabs 0RF 7 days R10.32 - Left lower quadrant pain
--- OUTSIDE RECORDS SUMMARY | 2025-07-29 16:29 | XMS_ITS | Patient Health Record ---
Author Organization [facility] Address [address] [place] [address] Care Team Providers Care Programmer Operator Numerical Control Name Role Phone Mann Queen Primary Care Provider Ke Toure Unavailable [phone] Allergies Allergen (clinical drug ingredient) Drug/Non Drug Allergy documented on EMR Reaction Allergy Type Onset Date Status Levaquin Unknown Drug Allergy Active Reason For Referral No Information Medications Medication SIG (Take, Route, Fr equency, Duration) Notes Start Date End Date Status Lisinopril 20 MG Tablet 1 tablet Orally Once a day Active Aleve 220 MG Tablet 1 tablet with food o r milk as needed Orally every 12 hrs Active Immunizations Vaccine Route Administration Date Status Comme nts Influenza Unknown 05/06/2025 Refused Social History Social History Additional Details Category Social Info Options Details Miscellaneous: Marital status: 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 [employer] Notes: Nonsmoker; no sig alcohol Nonsmoker; no sig alcohol Problems Problem Type SNOMED Code ICD Code Onset Dates Problem Status W/U Status Risk Notes Problem Colon cancer screening (853902619) Colon cancer screening (Z12.11) Active confirmed Problem Preprocedural examination (135621961863828) Preprocedural examination (Z01.818) Active confirmed Vital Signs Temperature 97.5 degrees Fahrenheit 05/06/2025 Blood pressure diastolic 01 mm Hg 05/06/2025 Height 65.5 in 05/06/2025 Blood pressure systolic 001 mm Hg 05/06/2025 Weight 207 lbs 05/06/2025 BMI 33.92 kg/m2 05/06/2025 Procedures Procedure Date Ordered Date Performed Result Body Sit e COLONOSCOPY 05/06/2025 N/A Encounters Encounter Location Date Provider Diagnosis [facility] [address] [place], [place] [id number] 07/22/2025 Ke Carlos [facility] [address] [place] [address] 05/06/2025 Ke Carlos Colon cancer screeni ng Z12.11 and Preprocedural examination Z01.818 [facility] [address] [place] [address] 01/09/2025 Ke Carlos Assessments Encounter Date Diagnosis [...] Test Test Name Order Date COLONOSCOPY 08/20/2013 Insurance Providers Payer Name Payer Address Payer Phone Subscriber Number Group Number Insured Name Patient Relationship to Insured Coverage Start Date Coverage End Date [facility] [address] [place] [address] [id number] [place] TYLER Self - patient is the insured Medical (General) History Medical History History ICD Code Denies CT,DM,CVA,Lung disease,renal dise ase He had a flexible sigmoidosc opy by in September 2002 for evaluation of bleeding-this revealed only minimal internal hemorrhoids Negative screening colonoscopy in December 2013. Surgical History Surgery Date(Month/Year) Knee
== END 2025-07-29 09:39 | disposition home or self-care (01) ==
LOC: HO.HMCH 08:51
PROVIDERS: PCP Physician Assistant; Visit Provider Physician Assistant
DX: Z23 Encounter for immunization (principal); R10.32 Left lower quadrant pain

== ENCOUNTER → 2025-07-29 08:50 | Outpatient (BNVA) | payer BC, SELFPAY | PROVIDERS: PCP Physician Assistant; Visit Provider Physician Assistant | DX: Z23 Encounter for immunization (principal); Z13.31 Encounter for screening for depression | CPT/HCPCS: 90471; 90656; 96127 ==